=== PATIENT | male | born 1955 | race Caucasian/White ===

== ENCOUNTER 2016-10-21 16:51 | Inpatient (IN) | payer MEDICARE ==
--- NOTE | 2016-10-21 18:31 | ED ---
Psych HPI - General Chief Complaint: Psychiatric Symptoms Stated Complaint: Medication Evaluation Time Seen by Provider: 10/21/16 18:15 Source: patient, family, RN notes reviewed Mode of arrival: ambulatory - History of Present Illness Initial Comments: Is a 61-year-old male with a history of depression also arthritis and GERD who is in tonight for evaluation for erratic mood swings. He states he is not suicidal or homicidal but this is been having mood swings feeling up and down up and down he feels very depressed. He states he had been on multiple medications or depressions noted which seemed to work she was taking cold turkey off his medications in the past he states recently 70 daily sleep very well he is very desponded. MD Complaint: feels depressed - Related Data Home Medications Medication Instructions Recorded Confirmed Omeprazole 40 mg PO DAILY 04/13/16 10/21/16 Amitriptyline HCl [Elavil] 100 mg PO HS 10/21/16 10/21/16 Cholecalciferol [Vitamin D3] 1,000 unit PO DAILY 10/21/16 10/21/16 Melatonin 5 mg PO HS 10/21/16 10/21/16 Dingle-3 Fatty Acids/Fish Oil [Fish 1 cap PO DAILY 10/21/16 10/21/16 Oil 1,000 mg Capsule] Terazosin [Hytrin] 5 mg PO BID 10/21/16 10/21/16 Vitamin B Complex 1 cap PO DAILY 10/21/16 10/21/16 Allergies Allergy/AdvReac Type Severity Reaction Status Date / Time No Known Allergies Allergy Verified 10/21/16 19:05 Review of Systems ROS Statement: Those systems with pertinent positive or pertinent negative responses have been documented in the HPI. ROS Other: All systems not noted in ROS Statement are negative. Past Medical History Past Medical History: GERD/Reflux History of Any Multi-Drug Resistant Organisms: None Reported Past Surgical History: No Surgical Hx Reported Additional Past Surgical History / Comment(s): toe removal (R) foot. Past Psychological History: Anxiety, Depression Smoking Status: Current every day smoker Past Alcohol Use History: None Reported Past Drug Use History: None Reported General Exam - General Exam Comments Initial Comments: This is a well-developed well-nourished awake alert oriented 3 male Limitations: no limitations General appearance: alert, anxious Head exam: Present: atraumatic, normocephalic, normal inspection Eye exam: Present: normal appearance, PERRL, EOMI. Absent: scleral icterus, conjunctival injection, periorbital swelling ENT exam: Present: normal exam, mucous membranes moist Neck exam: Present: normal inspection. Absent: tenderness, meningismus, lymphadenopathy Respiratory exam: Present: normal lung sounds bilaterally. Absent: respiratory distress, wheezes, rales, rhonchi, stridor Cardiovascular Exam: Present: regular rate, normal rhythm, normal heart sounds. Absent: systolic murmur, diastolic murmur, rubs, gallop, clicks GI/Abdominal exam: Present: soft, normal bowel sounds. Absent: distended, tenderness, guarding, rebound, rigid Extremities exam: Present: normal inspection, full ROM, normal capillary refill. Absent: tenderness, pedal edema, joint swelling, calf tenderness Back exam: Present: normal inspection Neurological exam: Present: alert, oriented X3, CN II-XII intact Psychiatric exam: Present: depressed Skin exam: Present: warm, dry, intact, normal color. Absent: rash Course Vital Signs 10/21/16 17:35 Temperature 97.3 F L Pulse Rate 86 Respiratory 20 Rate Blood Pressure 143/87 O2 Sat by Pulse 97 Oximetry Medical Decision Making - Medical Decision Making The patient was evaluated by the psychiatric service/[facility] service patient will be admitted for inpatient treatment. - Lab Data Lab Results 10/21/16 Range/Units 19:49 Urine Opiates Screen Not Detected (NotDetected) Ur Oxycodone Screen Not Detected (NotDetected) Urine Methadone Screen Not Detected (NotDetected) Ur Propoxyphene Screen Not Detected (NotDetected) Ur Barbiturates Screen Not Detected (NotDetected) U Tricyclic Antidepress Detected H (NotDetected) Ur Phencyclidine Scrn Not Detected (NotDetected) Ur Amphetamines Screen Not Detected (NotDetected) U Methamphetamines Scrn Not Detected (NotDetected) U Benzodiazepines Scrn Not Detected (NotDetected) Urine Cocaine Screen Not Detected (NotDetected) U Marijuana (THC) Screen Not Detected (NotDetected) Disposition Clinical Impression: Depression Disposition: TRANSFER TO PSYCH HOSP/UNIT Condition: Stable Referrals: None,Stated [Primary Care Provider] - 1-2 days
[2016-10-21] MEDS ORDERED: ZIPRASIDONE 20 MG VIAL IM PRN (21:12)
[2016-10-21] MEDS ORDERED: ACETAMINOPHEN TAB 325 MG TAB PO PRN (21:12)
[2016-10-21] MEDS ORDERED: MAG HYDROX/AL HYDROX/SIMETH 30 ML CUP PO PRN (21:12)
[2016-10-21] MEDS ORDERED: MAGNESIUM HYDROXIDE 2,400 MG/10 ML CUP PO PRN (21:12)
[2016-10-21 22:15] VITALS: BMI 29.5
[2016-10-21] MEDS: LORazepam 1 MG TAB PO PRN (22:54)
[2016-10-22] MEDS: TERAZOSIN 5 MG CAP PO SCH ×2 (08:25→20:37)
[2016-10-22] MEDS: PANTOPRAZOLE 40 MG TABLET PO SCH (08:25)
[2016-10-22 09:31] LABS: Basophils % (A) 0 %; CH 31.2; CHCM 34.5; Eosinophils # (A) 0.2 k/uL (0-0.7); Eosinophils % (A) 3 %; HCT 45.2 % (39.0-53.0); HDW 2.43; HGB 15.2 gm/dL (13.0-17.5); Luc # (Auto) 0.23; Luc % (Auto) 3; Lymphocytes # (A) 1.5 k/uL (1.0-4.8); Lymphocytes % (A) 21 %; MCH 30.5 pg (25.0-35.0); MCHC 33.6 g/dL (31.0-37.0); MCV 90.9 fL (80.0-100.0); Monocytes # (A) 0.4 k/uL (0-1.0); Monocytes % (A) 6 %; Neutrophils # (A) 4.7 k/uL (1.3-7.7); Neutrophils % (A) 66 %; RBC 4.97 m/uL (4.30-5.90); WBC 7.1 k/uL (3.8-10.6); WBC (Perox) 6.99
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
[2016-10-22 09:48] LABS: ALT 31 U/L (21-72); AST 22 U/L (17-59); Alkaline Phosphatase 87 U/L (38-126); Anion Gap 10 mmol/L; Blood Urea Nitrogen 15 mg/dL (9-20); Calcium 9.8 mg/dL (8.4-10.2); Carbon Dioxide 24 mmol/L (22-30); Chloride 108 mmol/L (98-107); Glucose 137 mg/dL (74-99); Non-African American GFR(MDRD) >60 (>60 ml/min/1.73 sqM); Potassium 4.2 mmol/L (3.5-5.1); Sodium 142 mmol/L (137-145); Total Bilirubin 1.3 mg/dL (0.2-1.3); Total Protein 7.4 g/dL (6.3-8.2)
[2016-10-22] MEDS: LORazepam 1 MG TAB PO PRN (20:38)
--- NOTE | 2016-10-22 23:42 | CONS ---
DATE OF CONSULTATION: 10/22/2016 REASON FOR CONSULTATION: Medical management requested by Dr. Jenkins. CONSULTATION: This is a pleasant 61-year-old patient of Dr. Kedar Lipscomb whose chronic stable medical conditions include GERD, insomnia, arthritis in his feet, increased cholesterol, the medication for which has been held by his family doctor. Patient has a right eyeglass, a complication of cataract surgery. Patient has not been taking some of his medications and presented with extreme anxiety, in nearly a manic state, admitted for the same. Further workup as per Psychiatry. Patient denies any cardiac history. Sitting up on a chair, comfortable. REVIEW OF SYSTEMS: CONSTITUTIONAL: None. HEENT: No vision in the right eye. RESPIRATORY: None. CARDIOVASCULAR: None. GASTROINTESTINAL: Patient has GERD. GENITOURINARY: None. MUSCULOSKELETAL: Aches and pains in the joints, especially in the feet. DERMATOLOGICAL: None. HEMATOLOGICAL: None. LYMPHATICS: None. PSYCHIATRY: Very anxious. PAST MEDICAL HISTORY: 1. GERD. 2. Insomnia. 3. Arthritis in the feet. 4. Increased cholesterol. 5. Right glass eye. 6. Anxiety. 7. Depression. PAST SURGICAL HISTORY: Right toe removed. SOCIAL HISTORY: Patient smoked for about 37 years; stopped about 6 months ago. . On Disability. Patient used to work in [place] and was laid off. Denies any excessive alcohol. FAMILY HISTORY: Dementia. HOME MEDICATIONS: 1. Vitamin B complex 1 capsule p.o. daily. 2. Hytrin 5 mg p.o. b.i.d. 3. Fish oil 1 capsule p.o. daily. 4. Melatonin 5 mg p.o. at bedtime. 5. Vitamin D3, 1000 units p.o. daily. 6. Elavil 100 mg at bedtime. 7. Omeprazole 40 mg p.o. daily. On examination, temperature 97.8, pulse 87, respiration 16, blood pressure 126/79, pulse ox 97% on room air. GENERAL APPEARANCE: Average build. Sitting up on a chair. Comfortable. 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 HEENT: External appearance of nose and ears normal. Oral cavity normal. NECK: JVD not raised. Mass not palpable. RESPIRATORY: Effort normal. LUNGS: Slightly decreased breath sounds. CARDIOVASCULAR: First and second sounds normal. No edema. ABDOMEN: Soft, nontender. Liver and spleen not palpable. LYMPHATIC: No lymph node palpable in neck or axillae. PSYCHIATRY: Alert and oriented x3. Mood and affect slightly anxious-appearing. NEUROLOGICAL: Pupils equal. Cranial nerves grossly intact. Power and sensation grossly intact. INVESTIGATIONS: White count 7.1, hemoglobin 15.2. Potassium 4.2. BUN and creatinine are normal. Glucose 137. Urine drug screen positive for tricyclic antidepressants. ASSESSMENT: 1. Chronic insomnia from multiple medical problems. 2. Chronic gastroesophageal reflux disease. 3. Primary osteoarthritis in both feet. 4. Hyperglycemia, currently off medication. 5. Artificial right eye. 6. Bipolar 2 disorder, most recent episode mixed mood state. 7. Unspecified anxiety disorder as per Psychiatry. PLAN: Care was discussed with the patient. Home medication should be reviewed. The patient when discharged should follow up with Dr. Lipscomb. Please call us if you have any questions. Thank you, Dr. Jenkins.
[2016-10-23] MEDS: TERAZOSIN 5 MG CAP PO SCH ×2 (08:44→20:26)
[2016-10-23] MEDS: PANTOPRAZOLE 40 MG TABLET PO SCH (08:44)
--- NOTE | 2016-10-23 11:37 | P.PN ---
Progress Note - Text SUBJECTIVE: I reviewed the medical record, interviewed Mr. Santamaria discuss his treatment and treatment plan during team meeting. He denied problems or concerns. He alleged that he slept well last night and feels much less anxious than he did yesterday. We discussed treatment of his bipolar illness. He consented to a trial of Seroquel. OBJECTIVE: He presented as a casually groomed 61-year-old male who was pleasant on approach. He made eye contact and appeared to attend to the interview. He had a bright facial expression. He showed no abnormality of psychomotor activity. He was not agitated or restless. His speech was nonpressured but had increased rate. His affect was elevated but appropriate. He denied suicidal ideation or wishes. He denied homicidal ideation. He denied feeling hopeless, helpless or worthless. He did not express ideas reference, paranoid ideation or delusional thoughts. His thinking was concrete but his associations appeared coherent and logical. He denied hallucinations and did not appear to be responding to internal stimuli. ASSESSMENT: He is less anxious, restless and hyperactive than yesterday. He is denying feeling hopeless or helpless. He has some signs of hypomania. PLAN: Continue inpatient psychiatric hospitalization. Continue suicide precautions with 15 minute checks. Begin a trial of Seroquel XL 100 mg at bedtime and titrated according to clinical response and tolerance. Encourage participation in therapeutic groups and activities. Evaluate clinical status response to treatment daily basis.
[2016-10-24] MEDS: PANTOPRAZOLE 40 MG TABLET PO SCH (09:18)
[2016-10-24] MEDS: TERAZOSIN 5 MG CAP PO SCH ×2 (09:18→20:03)
[2016-10-24] MEDS: LORazepam 1 MG TAB PO PRN ×2 (09:19→22:25)
--- NOTE | 2016-10-24 15:39 | P.PN ---
Progress Note - Text INTERVERAL HISTORY: Cross cover for weekend Review of medical record met with patient. Patient reports that he slept well but that he had a nightmare last night. Patient begins to talk about needing to go home and take care of his . Talks about his dog how he got the dog. Patient hyperverbal tearful at times, labile switching to laughing. MENTAL STATUS EXAM:Patient alert and oriented 3, good eye contact, street clothing. Speech normal volume, rate and production. Coherent, logical, hyperverbal, overdetailed, circumstantial and tangential thought process. No COBY, no FOI. [No TB/TW/TI] Denied auditory and visual hallucinations. Denied paranoid ideation, delusions or IOR. Mood elevated, tearful, affect and expansive, congruent with mood. Denies suicidal ideation, denies homicidal ideation. Insight partial; Judgement roast plan intact for treatment purposes Bipolar, hypomanic PLAN: Continue inpatient psychiatric hospitalization. Continue suicide precautions with 15 minute checks. Increase Seroquel to 200 mg daily at bedtime, titrated according to clinical response and tolerance. The patient in milieu therapy
[2016-10-24] MEDS: QUEtiapine XR 200 MG TAB.ER.24H PO SCH (20:05)
[2016-10-25] MEDS: PANTOPRAZOLE 40 MG TABLET PO SCH (08:40)
[2016-10-25] MEDS: TERAZOSIN 5 MG CAP PO SCH ×2 (08:40→20:14)
--- NOTE | 2016-10-25 15:17 | P.PN ---
Progress Note - Text INTERVERAL HISTORY:Weekend cross cover for Dr Jenkins Review of medical record discussed with nursing staff, met with patient. Patient reports that he slept well last night, no nightmares. REports he was sedated and had hard time waking up. Patient again speaks about his and his need to be at home and take care of her, but did not press. Today patient was not labile as yesterday. Patient note hyperverbal. MENTAL STATUS EXAM:Patient alert and oriented 3, good eye contact, street clothing. Speech normal volume, rate and production. Coherent, logical, goal directed thought process. No COBY, no FOI. [No TB/TW/TI] Denied auditory and visual hallucinations. Denied paranoid ideation, delusions or IOR. Mood neutral, affect full range normal intensity, congruent with mood. Denies suicidal ideation, denies homicidal ideation. Insight partial; Judgement grossly intact for treatment purposes Bipolar, hypomanic PLAN: Continue inpatient psychiatric hospitalization. Continue suicide precautions with 15 minute checks. Continue Seroquel to 200 mg daily at bedtime, titrated according to clinical response and tolerance. SW to arrange family meeting, need wifes input on how patient is doing. Informed patient I could not promise discharge tomorrow, new psychiatrist will need to be in agreement.
[2016-10-25] MEDS: QUEtiapine XR 200 MG TAB.ER.24H PO SCH (20:14)
[2016-10-26] MEDS: PANTOPRAZOLE 40 MG TABLET PO SCH (09:11)
[2016-10-26] MEDS: TERAZOSIN 5 MG CAP PO SCH ×2 (09:11→21:09)
--- NOTE | 2016-10-26 14:38 | P.PN ---
Progress Note - Text SUBJECTIVE: I reviewed the medical record, interviewed Mr. Santamaria discuss his treatment and treatment plan during team meeting. He reports that current medication is helping him ,mind is not racing as before ,not easy agitated as before ,still having initial insomnia because "I stay late reading the Bible ", religiously preoccupied ,denies any side-effect from medication ,feels much less anxious than he did prior to his admission Talked in detail about ongoing stressor especially regarding his medical insurance and does not know if he is qualified for Medicaid as supplement or not "I need dental work and hearing test but I can not afford it" OBJECTIVE: He presented as a casually groomed 61-year-old male who was pleasant on approach. He made eye contact and appeared to attend to the interview. He had a tense facial look. He was not agitated or restless. His speech was non pressured but had increased rate. His affect was elevated but appropriate. He denied suicidal ideation or wishes. He denied homicidal ideation. He denied feeling hopeless, helpless or worthless. He did not express ideas reference, paranoid ideation or delusional thoughts. His thinking was concrete but his associations appeared coherent and logical. He denied hallucinations and did not appear to be responding to internal stimuli. ASSESSMENT: He is less anxious, decrease racing thoughts. He is denying feeling hopeless or helpless. PLAN: Continue inpatient psychiatric hospitalization. ,change Seroquel to regular form as patient will not be able to afford cost of XR Evaluate clinical status response to treatment daily basis.,most likely discharge Tomorrow
[2016-10-26] MEDS ORDERED: QUEtiapine 200 MG TAB PO SCH (21:00)
[2016-10-27 06:48] VITALS: TEMP 97.8
[2016-10-27] MEDS: PANTOPRAZOLE 40 MG TABLET PO SCH (07:53)
[2016-10-27] MEDS: TERAZOSIN 5 MG CAP PO SCH (09:42)
[2016-10-27 09:44] VITALS: BP 130/82; PULSE 93; RESP 16
--- NOTE | 2016-10-27 12:42 | DS ---
DATE OF ADMISSION: 10/21/2016 DATE OF DISCHARGE: 10/27/2016 CONSULT REASON: For medical management. DISCHARGE DIAGNOSES: 1. Bipolar disorder type 2, mixed episode. 2. Unspecified anxiety disorder. BRIEF SUMMARY OF THE ADMISSION NOTES: Please refer to the initial psychiatric evaluation dictated by Dr. Jenkins. Patient initially admitted to the mental health unit complaining of high anxiety, racing mind, poor sleep, very restless, on edge, a lot of pentecostalism issues with patient, hyperverbal and loud. For complete evaluation please refer to history and physical exam. HOSPITAL COURSE: Patient was admitted to the mental health unit on voluntary basis. At the time of the admission, patient was on melatonin 5 mg at bedtime and amitriptyline 100 mg at bedtime prescribed by his primary care physician for his depression; however, it seems that this did trigger manic episode, and the patient was having more anxiety, racing thoughts, very restless and hyperverbal since he did start to tricyclic antidepressant. Dr. Jenkins discontinued the Elavil and he did start him on Seroquel XR and gradually titrated it to 200 mg; however, patient does not have supplement insurance to afford the silvestre for the Seroquel XR, so I did change the Seroquel to regular form that the patient can afford. When I saw the patient, he stated that prior to his admission he was up all night reading in his bible and praying; however, he stated that since he has been on Seroquel 200 and this is since October 25, he has been able to sleep at night, less religiously preoccupied. No anxiety. No racing thought. He denied any psychotic symptoms such as auditory or visual hallucination or idea of reference. In one-to-one he was frustrated as he is not able to afford dental work financially and also hearing test, but in general he was very pleasant, very kind, cooperative, attending all the group therapy and he denied any side effect from the medication. Mental status examination at the time of the discharge: Patient is a very pleasant, elderly man missing most of his front teeth, alert, oriented x3. Good eye contact. Speech is normal in volume and rate. Denied any auditory, visual hallucination, denied any delusion or paranoia, slightly pentecostalism preoccupied, but very easy to redirect. No suicidal ideation, intent or plan. Denied any homicidal ideation. Insight and judgment are improving. Cognitive ability has remained stable across his hospitalization. There is no verbal or physical aggression observed. PLAN: 1. The patient will be discharged from the Mental Health Unit today to return back home. 2. Patient was given prescription for Seroquel 200 mg at bedtime to restore his sleep and as mood stabilizer. I did discuss with the patient that he cannot take any antidepression medication as this would trigger manic episode, especially the tricyclic antidepressant. Patient is able to complete his activities of daily living. There is no eminent safety risk and he is appropriate for transition back to the outpatient care. He was instructed to return to the emergency room if any acute safety concern. Patient's condition at the time of the discharge is stable.
== END 2016-10-27 16:05 | disposition home or self-care (01) | DRG 885 ==
LOC: EC 16:51 → 3MHU 20:49
PROVIDERS: ADMIT Psychiatry & Neurology Psychiatry; ATTEND Psychiatry & Neurology Psychiatry
DX: F31.81 Bipolar II disorder (principal); F41.9 Anxiety disorder, unspecified; F51.04 Psychophysiologic insomnia; K21.9 Gastro-esophageal reflux disease without esophagitis; R73.9 Hyperglycemia, unspecified; F51.5 Nightmare disorder; K08.409 Partial loss of teeth, unspecified cause, unspecified class; H54.41 Blindness, right eye, normal vision left eye; M19.072 Primary osteoarthritis, left ankle and foot; M19.071 Primary osteoarthritis, right ankle and foot; Z90.01 Acquired absence of eye; Z97.0 Presence of artificial eye; Z56.0 Unemployment, unspecified; Z63.8 Other specified problems related to primary support group; Z62.810 Personal history of physical and sexual abuse in childhood; Z62.820 Parent-biological child conflict; Z81.1 Family history of alcohol abuse and dependence; Z59.9 Problem related to housing and economic circumstances, unspecified; Z87.891 Personal history of nicotine dependence; Z79.899 Other long term (current) drug therapy; Z89.421 Acquired absence of other right toe(s); Z86.69 Personal history of other diseases of the nervous system and sense organs
CPT/HCPCS: 80053; 80306; 84443; 85025; 99285

== ENCOUNTER → 2018-11-12 | Outpatient (CLI) | payer MEDICARE ==
[2018-11-12 09:42] LABS: Basophils % (A) 0 %; Eosinophils # (A) 0.3 k/uL (0-0.7); Eosinophils % (A) 3 %; HCT 43.2 % (39.0-53.0); HGB 13.9 gm/dL (13.0-17.5); Lymphocytes # (A) 1.6 k/uL (1.0-4.8); Lymphocytes % (A) 18 %; MCH 28.8 pg (25.0-35.0); MCHC 32.1 g/dL (31.0-37.0); MCV 89.7 fL (80.0-100.0); Monocytes # (A) 0.5 k/uL (0-1.0); Monocytes % (A) 6 %; Neutrophils % (A) 70 %; Platelet Count 245 k/uL (150-450); RBC 4.82 m/uL (4.30-5.90); RDW 14.8 % (11.5-15.5); WBC 8.7 k/uL (3.8-10.6)
[2018-11-12 16:16] LABS: ALT 40 U/L (10-49); AST 32 U/L (14-35); African American GFR (CKD) 92.4 (60.0-200.0); Albumin/Globulin Ratio 1.91 (1.60-3.17); Alkaline Phosphatase 96 U/L (41-126); Calcium 9.5 mg/dL (8.7-10.3); Carbon Dioxide 29.1 mmol/L (21.6-31.8); Chloride 106 mmol/L (96-109); Cholesterol 262 mg/dL (0-200); Globulin 2.2 g/dL (1.6-3.3); Glucose 111 mg/dL (70-110); Potassium 4.2 mmol/L (3.5-5.5); Sodium 141 mmol/L (135-145); Total Bilirubin 0.3 mg/dL (0.2-1.2); Total Protein 6.4 g/dL (6.2-8.2)
== END | disposition home or self-care (01) ==
LOC: LABWHC1 08:39
PROVIDERS: ATTEND Family Medicine
DX: I10 Essential (primary) hypertension (principal); J44.9 Chronic obstructive pulmonary disease, unspecified; E78.5 Hyperlipidemia, unspecified
CPT/HCPCS: 36415; 80053; 80061; 83721; 85025

== ENCOUNTER 2019-03-22 06:02 | Inpatient (IN) | payer MEDICARE ==
[2019-03-22] MEDS ORDERED: SODIUM CHLORIDE 0.9% 1,000 ML IV ONE ×3 (06:18→07:35)
[2019-03-22 06:24] LABS: Glucose,Whole Blood >600 mg/dL (75-99)
[2019-03-22] MEDS ORDERED: SODIUM CHLORIDE 0.9% 1,000 ML IV SCH (06:30)
--- NOTE | 2019-03-22 06:39 | ED ---
Nausea/Vomiting/Diarrhea HPI - General Chief complaint: Nausea/Vomiting/Diarrhea Stated complaint: abd pain, disoriented Time Seen by Provider: 03/22/19 06:08 Source: patient Mode of arrival: ambulatory Limitations: no limitations - History of Present Illness Initial comments: 63-year-old male history of type 2 diabetes on metformin, severe depression, G ERD presents emergency department for 4 days of vomiting, disorientation. at bedside as well as patient provide history. Patient states he has been vomiting for the past 4 days he states he is not drinking much water but rather large amounts of Coca cola. states that he has seemed disoriented she states she knows raise at what year it is and his birthday but just seems off. No focused. Patient denies abdominal pain, diarrhea, fevers or chest pain. patient states he is slightly SOB. Denies leg swelling. Remaining ROS (-) Upon arrival patient has increased respiration, AAOx3. Appears obviously dry. - Related Data Home Medications Medication Instructions Recorded Confirmed Omeprazole 40 mg PO DAILY 04/13/16 03/22/19 Terazosin [Hytrin] 5 mg PO BID 10/21/16 03/22/19 Atorvastatin [Lipitor] 40 mg PO HS 03/22/19 03/22/19 Cholecalciferol [Vitamin D3 (25 1,000 unit PO DAILY 03/22/19 03/22/19 Mcg = 1000 Iu)] Cinnamon Bark [Cinnamon] 1,000 mg PO DAILY 03/22/19 03/22/19 Citalopram Hydrobromide [CeleXA] 30 mg PO DAILY 03/22/19 03/22/19 Cyanocobalamin (Vitamin B-12) 1,000 mcg PO DAILY 03/22/19 03/22/19 [Vitamin B-12] Fish Oil/Dha/Epa [Fish Oil 1,200 1 cap PO DAILY 03/22/19 03/22/19 mg Fish Oil] Multivit-Min/Folic/Vit K/Lycop 1 tab PO DAILY 03/22/19 03/22/19 [Men's Multivitamin Tablet] OLANZapine 20 mg PO HS 03/22/19 03/22/19 Vitamin E (Dl,Tocopheryl Acet) 400 unit PO DAILY 03/22/19 03/22/19 [Vitamin E] clonazePAM 1 mg PO BID 03/22/19 03/22/19 metFORMIN HCL [Glucophage] 1,000 mg PO BID 03/22/19 03/22/19 Allergies Allergy/AdvReac Type Severity Reaction Status Date / Time No Known Allergies Allergy Verified 03/22/19 07:47 Review of Systems ROS Statement: Those systems with pertinent positive or pertinent negative responses have been documented in the HPI. ROS Other: All systems not noted in ROS Statement are negative. Past Medical History Past Medical History: Diabetes Mellitus, GERD/Reflux, Hyperlipidemia History of Any Multi-Drug Resistant Organisms: None Reported Past Surgical History: No Surgical Hx Reported Additional Past Surgical History / Comment(s): toe removal (R) foot. Past Anesthesia/Blood Transfusion Reactions: No Reported Reaction Past Psychological History: Anxiety, Depression Smoking Status: Current every day smoker Past Alcohol Use History: None Reported Past Drug Use History: None Reported - Past Family History Father History Unknown: Yes Family Medical History: Dementia General Exam - General Exam Comments Initial Comments: General: The patient is awake and alert, but appears fatigued Eye: +3 mm pupils are equal, round and reactive to light, extra-ocular movements are intact. No nystagmus. There is normal conjunctiva bilaterally. No signs of icterus. Ears, nose, mouth and throat: There are moist mucous membranes and no oral lesions. Neck: The neck is supple, there is no tenderness or JVD. Cardiovascular: There is a regular rate and rhythm. No murmur, rub or gallop is appreciated. Respiratory: Lungs are clear to auscultation, respirations are non-labored respiration rate is increased, breath sounds are equal. No wheezes, stridor, rales, or rhonchi. Gastrointestinal: Soft, non-distended, non-tender abdomen without masses or organomegaly noted. There is no rebound or guarding present. Musculoskeletal: Normal ROM, no tenderness. Strength 5/5. Sensation intact. Radial and DP pulses equal bilaterally 2+. Neurological: A&O x 3. CN II-XII intact grossly, There are no obvious motor or sensory deficits. Coordination appears grossly intact. Speech is normal. Skin: Skin is warm and dry and no rashes or lesions are noted. Psychiatric: Cooperative, appropriate mood & affect, normal judgment. Limitations: no limitations Course Vital Signs 03/22/19 03/22/19 03/22/19 06:07 06:52 07:40 Temperature 97.4 F L Pulse Rate 95 96 Respiratory 27 H 26 H Rate Blood Pressure 123/86 122/103 O2 Sat by Pulse 96 97 Oximetry 03/22/19 08:27 Temperature 98.0 F Pulse Rate 98 Respiratory 26 H Rate Blood Pressure 132/108 O2 Sat by Pulse 96 Oximetry Medical Decision Making - Medical Decision Making 63-year-old male presents emergency department for evaluation of vomiting, altered mental status. Patient is alert and oriented 3 upon arrival does not appear acutely altered however slightly lethargic. Patient Glucose >600. DMII hx. Patient found to be in DKA with critically low CO2, elevated glucose at ~1000 and acetone position with urine ketones. Patient potassium 5.4. Patient given IVF, on maintenance at 200ml/hr. Insulin bolus with DKA protocols in place. Patient case discussing with attending Dr. Medley patient will be admitted to floor on telemetry. He is currently stable. Admission accepted. - Lab Data Result diagrams: 03/22/19 06:30 03/22/19 06:30 Lab Results 03/22/19 03/22/19 03/22/19 Range/Units 06:18 06:18 06:30 WBC 8.1 (3.8-10.6) k/uL RBC 5.17 (4.30-5.90) m/uL Hgb 16.0 (13.0-17.5) gm/dL Hct 51.2 (39.0-53.0) % MCV 99.1 (80.0-100.0) fL MCH 31.0 (25.0-35.0) pg MCHC 31.3 (31.0-37.0) g/dL RDW 13.3 (11.5-15.5) % Plt Count 377 (150-450) k/uL Neutrophils % 87 % Lymphocytes % 7 % Monocytes % 5 % Eosinophils % 0 % Basophils % 0 % Neutrophils # 7.1 (1.3-7.7) k/uL Lymphocytes # 0.5 L (1.0-4.8) k/uL Monocytes # 0.4 (0-1.0) k/uL Eosinophils # 0.0 (0-0.7) k/uL Basophils # 0.0 (0-0.2) k/uL Hypochromasia Slight PT (9.0-12.0) sec INR (<1.2) APTT (22.0-30.0) sec Sodium (137-145) mmol/L Potassium (3.5-5.1) mmol/L Chloride (98-107) mmol/L Carbon Dioxide (22-30) mmol/L Anion Gap mmol/L BUN (9-20) mg/dL Creatinine (0.66-1.25) mg/dL Est GFR (CKD-EPI)AfAm (>60 ml/min/1.73 sqM) Est GFR (CKD-EPI)NonAf (>60 ml/min/1.73 sqM) Glucose (74-99) mg/dL POC Glucose (mg/dL) >600 H >600 H (75-99) mg/dL POC Glu Certified Personal Finance Counselor ID Zimbabwean, Hazel Zimbabwean, Hazel Calcium (8.4-10.2) mg/dL Magnesium (1.6-2.3) mg/dL Total Bilirubin (0.2-1.3) mg/dL AST (17-59) U/L ALT (21-72) U/L Alkaline Phosphatase (38-126) U/L Troponin I (0.000-0.034) ng/mL Total Protein (6.3-8.2) g/dL Albumin (3.5-5.0) g/dL Acetone, Qual (Negative) 03/22/19 03/22/19 03/22/19 Range/Units 06:30 06:30 06:30 WBC (3.8-10.6) k/uL RBC (4.30-5.90) m/uL Hgb (13.0-17.5) gm/dL Hct (39.0-53.0) % MCV (80.0-100.0) fL MCH (25.0-35.0) pg MCHC (31.0-37.0) g/dL RDW (11.5-15.5) % Plt Count (150-450) k/uL Neutrophils % % Lymphocytes % % Monocytes % % Eosinophils % % Basophils % % Neutrophils # (1.3-7.7) k/uL Lymphocytes # (1.0-4.8) k/uL Monocytes # (0-1.0) k/uL Eosinophils # (0-0.7) k/uL Basophils # (0-0.2) k/uL Hypochromasia PT 9.6 (9.0-12.0) sec INR 0.9 (<1.2) APTT 24.6 (22.0-30.0) sec Sodium 135 L (137-145) mmol/L Potassium 5.4 H (3.5-5.1) mmol/L Chloride 98 (98-107) mmol/L Carbon Dioxide <5 L* (22-30) mmol/L Anion Gap mmol/L BUN 44 H (9-20) mg/dL Creatinine 1.79 H (0.66-1.25) mg/dL Est GFR (CKD-EPI)AfAm 46 (>60 ml/min/1.73 sqM) Est GFR (CKD-EPI)NonAf 40 (>60 ml/min/1.73 sqM) Glucose 1141 H* (74-99) mg/dL POC Glucose (mg/dL) (75-99) mg/dL POC Glu Certified Personal Finance Counselor ID Calcium 10.1 (8.4-10.2) mg/dL Magnesium 2.8 H (1.6-2.3) mg/dL Total Bilirubin 0.6 (0.2-1.3) mg/dL AST 24 (17-59) U/L ALT 52 (21-72) U/L Alkaline Phosphatase 177 H (38-126) U/L Troponin I <0.012 (0.000-0.034) ng/mL Total Protein 7.8 (6.3-8.2) g/dL Albumin 4.8 (3.5-5.0) g/dL Acetone, Qual Positive (Negative) - EKG Data EKG Comments: Ventricular rate 93 bpm, MI interval 156 ms, QRS duration 148 ms, QT/QTC 420/522 ms. This is normal sinus rhythm with a right bundle-branch block. EKG personally interpreted and reviewed by attending Dr. Medley Disposition Clinical Impression: DKA (diabetic ketoacidoses), Blood CO2 decreased, Altered mental status Disposition: ADMITTED IP TO THIS [facility] Condition: Serious Is patient prescribed a controlled substance at d/c from ED?: No Time of Disposition: 08:43 Decision to Admit Reason: Admit from EC Decision Date: 03/22/19 Decision Time: 07:45
[2019-03-22 06:46] LABS: Basophils % (A) 0 %; Eosinophils % (A) 0 %; HCT 51.2 % (39.0-53.0); Hypochromasia Slight; Lymphocytes # (A) 0.5 k/uL (1.0-4.8); Lymphocytes % (A) 7 %; MCHC 31.3 g/dL (31.0-37.0); MCV 99.1 fL (80.0-100.0); Mean Platelet Volume 8.2; Monocytes # (A) 0.4 k/uL (0-1.0); Monocytes % (A) 5 %; Neutrophils # (A) 7.1 k/uL (1.3-7.7); Neutrophils % (A) 87 %; Platelet Count 377 k/uL (150-450); RBC 5.17 m/uL (4.30-5.90); RDW 13.3 % (11.5-15.5); WBC 8.1 k/uL (3.8-10.6)
[2019-03-22 07:00] LABS: INR 0.9 (<1.2); Partial Thromboplastin Time 24.6 sec (22.0-30.0); Prothrombin Time 9.6 sec (9.0-12.0)
[2019-03-22 07:03] LABS: ALT 52 U/L (21-72); AST 24 U/L (17-59); African American GFR (CKD) 46 (>60 ml/min/1.73 sqM); Albumin 4.8 g/dL (3.5-5.0); Alkaline Phosphatase 177 U/L (38-126); Blood Urea Nitrogen 44 mg/dL (9-20); Calcium 10.1 mg/dL (8.4-10.2); Chloride 98 mmol/L (98-107); Magnesium 2.8 mg/dL (1.6-2.3); Potassium 5.4 mmol/L (3.5-5.1); Sodium 135 mmol/L (137-145); Total Bilirubin 0.6 mg/dL (0.2-1.3); Total Protein 7.8 g/dL (6.3-8.2)
[2019-03-22 07:26] LABS: Glucose 1141 mg/dL (74-99)
[2019-03-22 07:28] LABS: Carbon Dioxide <5 mmol/L (22-30)
[2019-03-22] MEDS ORDERED: INSULIN REGULAR BOLUS (FROM DRIP BAG) IV ONE (07:30)
[2019-03-22] MEDS ORDERED: NALOXONE 0.4 MG/ML 1 ML VIAL IV PRN (07:36)
[2019-03-22] MEDS ORDERED: ONDANSETRON 4 MG/2 ML VIAL IVP PRN (07:36)
--- NOTE | 2019-03-22 07:38 | XR ---
EXAMINATION TYPE: XR chest 2V DATE OF EXAM: 03/22/2019 COMPARISON: NONE HISTORY: Altered mental status TECHNIQUE: Frontal and lateral views of the chest are obtained. FINDINGS: Suboptimal inspiration. Probable linear atelectasis along the left infrahilar region, not d emonstrated well on the lateral view. There is no focal air space opacity, pleural effusion, or pneum othorax seen. The cardiac silhouette size is within normal limits. The osseous structures are inta ct. Minimal multilevel degenerative changes of the spine. IMPRESSION: Suboptimal inspiration with linear opacity along the left infrahilar region, likely atel ectasis.
[2019-03-22 07:51] LABS: Glucose,Whole Blood >600 mg/dL (75-99)
[2019-03-22] MEDS: INSULIN REGULAR 100 UNIT in SODIUM CHLORIDE 0.9% 100 ML IV SCH ×3 (07:52→23:14)
[2019-03-22 08:21] LABS: Appearance,Urine Clear (Clear); Bilirubin,Urine Negative (Negative); Blood,Urine Small (Negative); Color,Urine Colorless; Glucose,Urine (UA) 4+ (Negative); Leukocyte Esterase,Urine Negative (Negative); Mucus,Urine Rare /hpf; Nitrite,Urine Negative (Negative); Protein,Urine Trace (Negative); RBC,Urine <1 /hpf (0-5); Specific Gravity,Urine 1.022 (1.001-1.035); Urobilinogen,Urine <2.0 mg/dL (<2.0); WBC,Urine 1 /hpf (0-5)
[2019-03-22 08:26] LABS: Ketones,Urine 3+ (Negative)
[2019-03-22 08:32] LABS: Amphetamine Screen,Urine Not Detected (NotDetected); Barbiturate Screen,Urine Not Detected (NotDetected); Benzodiazepines Screen,Urine Not Detected (NotDetected); Cocaine Screen,Urine Not Detected (NotDetected); Methadone Screen, Urine Not Detected (NotDetected); Opiate Screen,Urine Not Detected (NotDetected); Oxycodone Screen, Urine Not Detected (NotDetected); Phencyclidine Screen,Urine Not Detected (NotDetected); Tricyclic Antidepressant,Urine Not Detected (NotDetected); Urn Cannabinoid Scrn Not Detected (NotDetected)
[2019-03-22 09:05] LABS: Glucose,Whole Blood >600 mg/dL (75-99)
[2019-03-22 09:46] LABS: VBG PH 7.09 (7.31-7.41)
[2019-03-22 09:53] LABS: African American GFR (CKD) 54 (>60 ml/min/1.73 sqM); Blood Urea Nitrogen 42 mg/dL (9-20); Chloride 112 mmol/L (98-107); Phosphorus 4.3 mg/dL (2.5-4.5); Potassium 4.6 mmol/L (3.5-5.1); Sodium 144 mmol/L (137-145)
[2019-03-22 10:05] LABS: Glucose 805 mg/dL (74-99)
[2019-03-22 10:06] LABS: Carbon Dioxide <5 mmol/L (22-30)
[2019-03-22 11:47] LABS: Glucose,Whole Blood >600 mg/dL (75-99)
[2019-03-22] MEDS: SODIUM CHLORIDE 0.45% 1,000 ML IV SCH ×2 (12:36→20:15)
--- NOTE | 2019-03-22 12:48 | P.HPIM ---
History of Present Illness 62-year-old admitted with for her diabetic ketoacidosis. Patient appears to have type 2 diabetes mellitus on metformin. Patient appears to have insulin deficiency even though his type II diabetic, because of which patient will need insulin upon discharge.I'm unable to get any history from the patient patient is alert oriented 2 but excessively drowsy and sleepy. Patient has been vomiting because of which patient stopped eating and started drinking Coca-Cola with which has sugars event patient came in with highly elevated blood sugars of 1100 patient may be in hyperosmolar statedoes appear to have ketoacidosis as well with the serum bicarbonate of less than 5 because her serum bicarbonate is very low anion gap is definitely very high but unable to calculate and patient is presently chloremia can hyponatremic because of that I'm switching this IV fluids to half-normal saline patient will be aggressively fluid resuscitated along with IV insulin. Review of Systems unable to obtain Past Medical History Past Medical History: Diabetes Mellitus, Eye Disorder, GERD/Reflux, Hyperlipidemia, Osteoarthritis (OA) Additional Past Medical History / Comment(s): NIDDM type II, insomnia, arthritis bilateral feet, tremors in arms/hands and feet, R eye is glass d/t eye problem present since , L eye diminished vision. 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 Past Anesthesia/Blood Transfusion Reactions: No Reported Reaction Smoking Status: Current every day smoker - Past Family History Father History Unknown: Yes Family Medical History: Dementia Additional Family Medical History / Comment(s): Father is living. Mother Family Medical History: Cancer Additional Family Medical History / Comment(s): Kidney cancer with nephrectomy and skin cancer removals. Mother is living. Medications and Allergies Home Medications Medication Instructions Recorded Confirmed Type Omeprazole 40 mg PO DAILY 04/13/16 03/22/19 History Terazosin [Hytrin] 5 mg PO BID 10/21/16 03/22/19 History Atorvastatin [Lipitor] 40 mg PO HS 03/22/19 03/22/19 History Cholecalciferol [Vitamin D3 (25 1,000 unit PO DAILY 03/22/19 03/22/19 History Mcg = 1000 Iu)] Cinnamon Bark [Cinnamon] 1,000 mg PO DAILY 03/22/19 03/22/19 History Citalopram Hydrobromide [CeleXA] 30 mg PO DAILY 03/22/19 03/22/19 History Cyanocobalamin (Vitamin B-12) 1,000 mcg PO DAILY 03/22/19 03/22/19 History [Vitamin B-12] Fish Oil/Dha/Epa [Fish Oil 1,200 1 cap PO DAILY 03/22/19 03/22/19 History mg Fish Oil] Multivit-Min/Folic/Vit K/Lycop 1 tab PO DAILY 03/22/19 03/22/19 History [Men's Multivitamin Tablet] OLANZapine 20 mg PO HS 03/22/19 03/22/19 History Vitamin E (Dl,Tocopheryl Acet) 400 unit PO DAILY 03/22/19 03/22/19 History [Vitamin E] clonazePAM 1 mg PO BID 03/22/19 03/22/19 History metFORMIN HCL [Glucophage] 1,000 mg PO BID 03/22/19 03/22/19 History Allergies Allergy/AdvReac Type Severity Reaction Status Date / Time No Known Allergies Allergy Verified 03/22/19 07:47 Physical Exam Vitals: Vital Signs Temp Pulse Pulse Resp BP BP Pulse Ox 03/22/19 11:47 97.9 F 98 20 130/82 94 L 03/22/19 09:18 97.6 F 99 20 129/77 95 03/22/19 08:27 98.0 F 98 26 H 132/108 96 03/22/19 07:40 96 26 H 122/103 97 03/22/19 06:52 97.4 F L 03/22/19 06:07 95 27 H 123/86 96 Intake and Output 03/21/19 03/22/19 03/22/19 22:59 06:59 14:59 Intake Total 45.112 Output Total 1000 Balance -954.888 Intake: Intake, IV Titration 45.112 Amount Insulin Regular 100 unit 45.112 In Sodium Chloride 0.9% 100 ml @ 0.1 UNITS/KG/HR 9.163 mls/hr IV .Q11H2M ABIGAIL Rx#:[id number] Output: Urine 1000 Other: # Voids 0 Weight 90.718 kg 90.718 kg PHYSICAL EXAMINATION: GENERAL: The patient is alert and oriented x2, not in any acute distress. Well developed, well nourished. HEENT: Pupils are round and equally reacting to light. EOMI. No scleral icterus. No conjunctival pallor. Normocephalic, atraumatic. No pharyngeal erythema. No thyromegaly. CARDIOVASCULAR: S1 and S2 present. No murmurs, rubs, or gallops. PULMONARY: Chest is clear to auscultation, no wheezing or crackles. ABDOMEN: Soft, nontender, nondistended, normoactive bowel sounds. No palpable organomegaly. MUSCULOSKELETAL: No joint swelling or deformity. EXTREMITIES: No cyanosis, clubbing, or pedal edema. NEUROLOGICAL: systole drowsy moving all 4 limbs SKIN: No rashes. Results CBC & Chem 7: 03/22/19 06:30 03/22/19 11:54 Labs: Abnormal Lab Results - Last 24 Hours (Table) 03/22/19 03/22/19 03/22/19 Range/Units 06:18 06:18 06:30 Lymphocytes # 0.5 L (1.0-4.8) k/uL VBG pH (7.31-7.41) VBG pCO2 (37-51) mmHg VBG HCO3 (24-28) mmol/L Sodium (137-145) mmol/L Potassium (3.5-5.1) mmol/L Chloride (98-107) mmol/L Carbon Dioxide (22-30) mmol/L BUN (9-20) mg/dL Creatinine (0.66-1.25) mg/dL Glucose (74-99) mg/dL POC Glucose (mg/dL) >600 H >600 H (75-99) mg/dL Magnesium (1.6-2.3) mg/dL Alkaline Phosphatase (38-126) U/L Urine Protein (Negative) Urine Glucose (UA) (Negative) Urine Ketones (Negative) Urine Blood (Negative) Urine Mucus (None) /hpf 03/22/19 03/22/19 03/22/19 Range/Units 06:30 07:49 08:10 Lymphocytes # (1.0-4.8) k/uL VBG pH (7.31-7.41) VBG pCO2 (37-51) mmHg VBG HCO3 (24-28) mmol/L Sodium 135 L (137-145) mmol/L Potassium 5.4 H (3.5-5.1) mmol/L Chloride (98-107) mmol/L Carbon Dioxide <5 L* (22-30) mmol/L BUN 44 H (9-20) mg/dL Creatinine 1.79 H (0.66-1.25) mg/dL Glucose 1141 H* (74-99) mg/dL POC Glucose (mg/dL) >600 H (75-99) mg/dL Magnesium 2.8 H (1.6-2.3) mg/dL Alkaline Phosphatase 177 H (38-126) U/L Urine Protein Trace H (Negative) Urine Glucose (UA) 4+ H (Negative) Urine Ketones 3+ H (Negative) Urine Blood Small H (Negative) Urine Mucus Rare H (None) /hpf 03/22/19 03/22/19 03/22/19 Range/Units 09:03 09:23 09:23 Lymphocytes # (1.0-4.8) k/uL VBG pH 7.09 L* (7.31-7.41) VBG pCO2 15 L* (37-51) mmHg VBG HCO3 4 L* (24-28) mmol/L Sodium (137-145) mmol/L Potassium (3.5-5.1) mmol/L Chloride 112 H (98-107) mmol/L Carbon Dioxide <5 L* (22-30) mmol/L BUN 42 H (9-20) mg/dL Creatinine 1.55 H (0.66-1.25) mg/dL Glucose 805 H* (74-99) mg/dL POC Glucose (mg/dL) >600 H (75-99) mg/dL Magnesium (1.6-2.3) mg/dL Alkaline Phosphatase (38-126) U/L Urine Protein (Negative) Urine Glucose (UA) (Negative) Urine Ketones (Negative) Urine Blood (Negative) Urine Mucus (None) /hpf 03/22/19 03/22/19 Range/Units 11:43 11:54 Lymphocytes # (1.0-4.8) k/uL VBG pH (7.31-7.41) VBG pCO2 (37-51) mmHg VBG HCO3 (24-28) mmol/L Sodium (137-145) mmol/L Potassium (3.5-5.1) mmol/L Chloride (98-107) mmol/L Carbon Dioxide (22-30) mmol/L BUN (9-20) mg/dL Creatinine (0.66-1.25) mg/dL Glucose 606 H* (74-99) mg/dL POC Glucose (mg/dL) >600 H (75-99) mg/dL Magnesium (1.6-2.3) mg/dL Alkaline Phosphatase (38-126) U/L Urine Protein (Negative) Urine Glucose (UA) (Negative) Urine Ketones (Negative) Urine Blood (Negative) Urine Mucus (None) /hpf Thrombosis Risk Factor Assmnt - Choose All That Apply Any of the Below Risk Factors Present?: Yes Each Factor Represents 1 point: Obesity (BMI >25) Other Risk Factors: Yes Each Risk Factor Represents 2 Points: Age 61-74 years Other congenital or acquired thrombophilia - If yes, enter type in comment: No Thrombosis Risk Factor Assessment Total Risk Factor Score: 3 Thrombosis Risk Factor Assessment Level: Moderate Risk Assessment and Plan Plan: -hyperglycemia with diabetic ketoacidosis I cannot rule out hyperosmolar state.will be continued on IV insulin drip IV fluids will be switched to half- normal saline because of hypernatremia and hyperchloremia. -Hyperkalemia secondary to metabolic acidosis.patient will need frequent labs. Patient will need close monitoring as well. -Metabolic acidosis anion gap secondary to hyperchloremia and diabetic ketoacidosis. type 2 diabetes mellitus noncompliance with medications, patient is insulin deficient because of which patient will need to be on subcutaneous insulin upon discharge recommend to start on 20-25 units long-acting along with 5 units pre- meal and up titrate if needed can continue metformin. to metabolic encephalopathy secondary to hyperosmolar state or DKA -nausea vomiting may be gastroenteritis or gastritis or even secondary to DKA patient then we will need to be on Protonix -gastroesophageal reflux disease -Hyperlipidemia -Bipolar disorder DVT prophylaxis with subcutaneous heparin
[2019-03-22 13:48] LABS: Glucose,Whole Blood 421 mg/dL (75-99)
[2019-03-22 13:54] LABS: Potassium 4.3 mmol/L (3.5-5.1)
[2019-03-22 15:06] LABS: Glucose,Whole Blood 342 mg/dL (75-99)
[2019-03-22 16:10] LABS: Glucose,Whole Blood 301 mg/dL (75-99)
[2019-03-22] MEDS: HEPARIN SODIUM,PORCINE 5,000 UNIT/ML 1 ML VIAL SQ SCH (16:45)
[2019-03-22 17:19] LABS: Glucose,Whole Blood 257 mg/dL (75-99)
[2019-03-22] MEDS: D5-0.45% NACL WITH KCL 20MEQ/L 1,000 ML IV SCH (17:25)
[2019-03-22 18:08] LABS: Glucose,Whole Blood 244 mg/dL (75-99)
[2019-03-22 19:07] LABS: Albumin 4.1 g/dL (3.5-5.0); Calcium 9.6 mg/dL (8.4-10.2); Phosphorus 1.6 mg/dL (2.5-4.5); Potassium 3.8 mmol/L (3.5-5.1); Total Bilirubin 0.5 mg/dL (0.2-1.3)
[2019-03-22 19:09] LABS: Glucose,Whole Blood 269 mg/dL (75-99)
[2019-03-22 20:04] LABS: Glucose,Whole Blood 234 mg/dL (75-99)
[2019-03-22] MEDS: ATORVASTATIN 40 MG TAB PO SCH (20:42)
[2019-03-22] MEDS: OLANZapine 10 MG TAB PO SCH (20:42)
[2019-03-22 21:00] LABS: Glucose,Whole Blood 201 mg/dL (75-99)
[2019-03-22 22:00] LABS: Glucose,Whole Blood 162 mg/dL (75-99)
[2019-03-22 23:00] LABS: Glucose,Whole Blood 140 mg/dL (75-99)
[2019-03-22 23:21] LABS: Albumin 3.9 g/dL (3.5-5.0); Calcium 9.6 mg/dL (8.4-10.2); Magnesium 2.4 mg/dL (1.6-2.3); Phosphorus 1.3 mg/dL (2.5-4.5); Potassium 3.7 mmol/L (3.5-5.1); Total Bilirubin 0.5 mg/dL (0.2-1.3); Total Protein 6.9 g/dL (6.3-8.2)
[2019-03-23] MEDS: HEPARIN SODIUM,PORCINE 5,000 UNIT/ML 1 ML VIAL SQ SCH ×3 (00:07→17:01)
[2019-03-23 00:08] LABS: Glucose,Whole Blood 117 mg/dL (75-99)
[2019-03-23] MEDS: D5-0.45% NACL WITH KCL 20MEQ/L 1,000 ML IV SCH ×3 (00:09→14:31)
[2019-03-23 01:06] LABS: Glucose,Whole Blood 140 mg/dL (75-99)
[2019-03-23] MEDS: SODIUM CHLORIDE 0.45% 1,000 ML IV SCH ×3 (01:08→14:33)
[2019-03-23 02:01] LABS: Hemoglobin A1C 13.9 % (4.0-6.0)
[2019-03-23 02:02] LABS: Glucose,Whole Blood 216 mg/dL (75-99)
[2019-03-23 02:57] LABS: Glucose,Whole Blood 201 mg/dL (75-99)
[2019-03-23 03:58] LABS: ALT 41 U/L (21-72); AST 21 U/L (17-59); African American GFR (CKD) >90 (>60 ml/min/1.73 sqM); Albumin 3.6 g/dL (3.5-5.0); Alkaline Phosphatase 109 U/L (38-126); Anion Gap 9 mmol/L; Blood Urea Nitrogen 29 mg/dL (9-20); Calcium 8.8 mg/dL (8.4-10.2); Carbon Dioxide 15 mmol/L (22-30); Chloride 121 mmol/L (98-107); Glucose 224 mg/dL (74-99); Phosphorus 1.3 mg/dL (2.5-4.5); Potassium 4.1 mmol/L (3.5-5.1); Sodium 145 mmol/L (137-145); Total Bilirubin 0.6 mg/dL (0.2-1.3); Total Protein 6.4 g/dL (6.3-8.2)
[2019-03-23 04:17] LABS: Glucose,Whole Blood 278 mg/dL (75-99)
[2019-03-23 05:06] LABS: Glucose,Whole Blood 327 mg/dL (75-99)
[2019-03-23 06:02] LABS: Glucose,Whole Blood 323 mg/dL (75-99)
[2019-03-23] MEDS: PANTOPRAZOLE 40 MG TABLET PO SCH (06:32)
[2019-03-23 07:11] LABS: Glucose,Whole Blood 337 mg/dL (75-99)
[2019-03-23 07:26] LABS: Albumin 3.3 g/dL (3.5-5.0); Calcium 8.8 mg/dL (8.4-10.2); Total Bilirubin 0.6 mg/dL (0.2-1.3)
[2019-03-23 07:39] LABS: Basophils # (A) 0.1 k/uL (0-0.2); Basophils % (A) 1 %; Eosinophils % (A) 0 %; HCT 41.2 % (39.0-53.0); Lymphocytes # (A) 0.9 k/uL (1.0-4.8); Lymphocytes % (A) 8 %; MCH 30.4 pg (25.0-35.0); Monocytes # (A) 0.7 k/uL (0-1.0); Monocytes % (A) 6 %; Neutrophils # (A) 9.6 k/uL (1.3-7.7); Neutrophils % (A) 84 %; Platelet Count 268 k/uL (150-450); RBC 4.61 m/uL (4.30-5.90); RDW 13.6 % (11.5-15.5); WBC 11.4 k/uL (3.8-10.6)
[2019-03-23 07:52] LABS: MCV 89.4 fL (80.0-100.0)
[2019-03-23 08:05] LABS: Glucose,Whole Blood 368 mg/dL (75-99)
[2019-03-23] MEDS: CITALOPRAM HYDROBROMIDE 10 MG TAB PO SCH (08:11)
[2019-03-23] MEDS: DOXAZOSIN 4 MG TAB PO SCH (08:11)
[2019-03-23] MEDS ORDERED: VITAMIN E (DL,TOCOPHERYL ACET) 400 UNIT CAP PO SCH (09:00)
[2019-03-23 09:02] LABS: Glucose,Whole Blood 306 mg/dL (75-99)
[2019-03-23 10:05] LABS: Glucose,Whole Blood 294 mg/dL (75-99)
[2019-03-23 11:02] LABS: Glucose,Whole Blood 293 mg/dL (75-99)
[2019-03-23 12:06] LABS: Glucose,Whole Blood 255 mg/dL (75-99)
[2019-03-23 13:20] LABS: Glucose,Whole Blood 193 mg/dL (75-99)
[2019-03-23 13:22] LABS: ALT 44 U/L (21-72); AST 22 U/L (17-59); African American GFR (CKD) >90 (>60 ml/min/1.73 sqM); Alkaline Phosphatase 106 U/L (38-126); Anion Gap 8 mmol/L; Blood Urea Nitrogen 22 mg/dL (9-20); Calcium 8.7 mg/dL (8.4-10.2); Carbon Dioxide 16 mmol/L (22-30); Chloride 121 mmol/L (98-107); Glucose 241 mg/dL (74-99); Potassium 3.6 mmol/L (3.5-5.1); Sodium 145 mmol/L (137-145); Total Bilirubin 0.7 mg/dL (0.2-1.3); Total Protein 5.6 g/dL (6.3-8.2)
[2019-03-23 13:35] LABS: Phosphorus 0.5 mg/dL (2.5-4.5)
[2019-03-23 14:14] LABS: Glucose,Whole Blood 202 mg/dL (75-99)
[2019-03-23 15:02] LABS: Glucose,Whole Blood 260 mg/dL (75-99)
[2019-03-23] MEDS: INSULIN REGULAR 100 UNIT in SODIUM CHLORIDE 0.9% 100 ML IV SCH (15:06)
[2019-03-23 16:07] LABS: Glucose,Whole Blood 218 mg/dL (75-99)
[2019-03-23] MEDS: POTAS-SOD-PHOS 278-164-250 MG 1 EACH PACKET PO SCH ×2 (17:01→20:53)
[2019-03-23 17:09] LABS: Glucose,Whole Blood 223 mg/dL (75-99)
[2019-03-23 18:03] LABS: Glucose,Whole Blood 199 mg/dL (75-99)
[2019-03-23] MEDS: INSULN ASP PRT/INSULIN ASPART 100 UNIT/ML 10 ML VIAL SQ SCH (18:26)
[2019-03-23 20:48] LABS: Glucose,Whole Blood 224 mg/dL (75-99)
[2019-03-23] MEDS: SODIUM BICARBONATE TAB 650 MG TAB PO SCH (20:53)
[2019-03-23] MEDS: OLANZapine 10 MG TAB PO SCH (20:53)
[2019-03-23] MEDS: ATORVASTATIN 40 MG TAB PO SCH (20:53)
[2019-03-23 21:01] VITALS: RESP 17
--- NOTE | 2019-03-23 21:38 | P.PN ---
Progress Note - Text Progress Note Date: 03/23/19 Interval history: This is a 63-year-old male patient of Dr. Lipscomb. Admitted with diabetic ketoa cidosis. Also admitted with metabolic encephalopathy. Patient has been on insulin drip. Today-on insulin drip. Also some questions. Hungry wants food. Later did eat. Review of systems: Was done for constitutional, cardiovascular, GI, pulmonary. relevant finding as above Active Medications Atorvastatin Calcium (Lipitor) 40 mg PO [facility] Last Admin: 03/23/19 20:53 Dose: 40 mg Documented by: Citalopram Hydrobromide (Celexa) 30 mg PO DAILY [facility] Last Admin: 03/23/19 08:11 Dose: 30 mg Documented by: Doxazosin Mesylate (Cardura) 8 mg PO DAILY [facility] Last Admin: 03/23/19 08:11 Dose: 8 mg Documented by: Enoxaparin Sodium (Lovenox) 40 mg SQ DAILY [facility] Sodium Chloride (Saline 0.45%) 1,000 mls @ 150 mls/hr IV .Q6H40M [facility] Last Admin: 03/23/19 14:33 Dose: Not Given Documented by: Insulin Aspart (Novolog Mix 70-30 Vial) 10 unit SQ AC-BID [facility] Last Admin: 03/23/19 18:26 Dose: 10 unit Documented by: Insulin Aspart (Novolog Mix 70-30 Vial) 5 unit SQ AC-LUNCH [facility] Naloxone HCl (Narcan) 0.2 mg IV Q2M PRN PRN Reason: Opioid Reversal Olanzapine (Zyprexa) 20 mg PO [facility] Last Admin: 03/23/19 20:53 Dose: 20 mg Documented by: Ondansetron HCl (Zofran) 4 mg IVP Q8HR PRN PRN Reason: Nausea And Vomiting Pantoprazole Sodium (Protonix) 40 mg PO AC-BRKFST [facility] Last Admin: 03/23/19 06:32 Dose: 40 mg Documented by: Potassium Phos/Sodium Phos (Neutra-Phos Packet) 1 each PO TID [facility] Last Admin: 03/23/19 20:53 Dose: 1 each Documented by: Sodium Bicarbonate (Sodium Bicarbonate Tab) 650 mg PO TID [facility] Last Admin: 03/23/19 20:53 Dose: 650 mg Documented by: On examination: VITAL SIGNS: 97.5, 81, 18, 116/68, 94% room air GENERAL APPEARANCE:. Lying in bed, awake. HEENT: Normal external appearance of nose and ear. Oral cavity dry EYES: Right artificial eye. Conjunctiva normal. NECK: JVD not raised. Mass not palpable. RESPIRATORY: Respiratory effort normal. Lungs clear to auscultation. CARDIOVASCULAR: First and second sounds normal. No edema. ABDOMEN: Soft. Liver and spleen not palpable. No tenderness. No mass palpable. PSYCHIATRY: He can tell his name. Knows that he is in the hospital. Struggle to remember the year. Did state that he is hungry. 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 We'll DC the insulin drip this evening. Start the patient on Novolin 70/30 10 units before breakfast and supper and 5 units before lunch. Change Accu-Cheks to 2 before meals at bedtime. Care was discussed at length with the nurse several times. Replace phosphorus with Neutra-Phos. Repeat labs in the morning.
[2019-03-24 01:56] LABS: Glucose,Whole Blood 280 mg/dL (75-99)
[2019-03-24] MEDS: INSULIN ASPART (NovoLOG) 100 UNIT/ML VIAL SQ SCH ×4 (02:08→17:06)
[2019-03-24 06:38] LABS: Glucose,Whole Blood 316 mg/dL (75-99)
[2019-03-24] MEDS: SODIUM CHLORIDE 0.45% 1,000 ML IV SCH ×2 (06:46→11:38)
[2019-03-24] MEDS: PANTOPRAZOLE 40 MG TABLET PO SCH (07:47)
[2019-03-24] MEDS: INSULN ASP PRT/INSULIN ASPART 100 UNIT/ML 10 ML VIAL SQ SCH (07:48)
[2019-03-24] MEDS ORDERED: ENOXAPARIN 40 MG/0.4 ML SYRINGE SQ SCH (09:00)
[2019-03-24] MEDS: DOXAZOSIN 4 MG TAB PO SCH (09:07)
[2019-03-24] MEDS: SODIUM BICARBONATE TAB 650 MG TAB PO SCH ×2 (09:07→16:53)
[2019-03-24] MEDS: CITALOPRAM HYDROBROMIDE 10 MG TAB PO SCH (09:07)
[2019-03-24] MEDS: POTAS-SOD-PHOS 278-164-250 MG 1 EACH PACKET PO SCH ×2 (09:07→16:53)
[2019-03-24 12:30] LABS: Glucose,Whole Blood 333 mg/dL (75-99)
[2019-03-24] MEDS ORDERED: INSULN ASP PRT/INSULIN ASPART 100 UNIT/ML 10 ML VIAL SQ SCH ×3 (12:30→17:30)
[2019-03-24 13:10] LABS: African American GFR (CKD) >90 (>60 ml/min/1.73 sqM); Anion Gap 9 mmol/L; Blood Urea Nitrogen 19 mg/dL (9-20); Calcium 9.1 mg/dL (8.4-10.2); Carbon Dioxide 20 mmol/L (22-30); Chloride 114 mmol/L (98-107); Glucose 360 mg/dL (74-99); Phosphorus 2.8 mg/dL (2.5-4.5); Potassium 4.2 mmol/L (3.5-5.1); Sodium 143 mmol/L (137-145)
[2019-03-24 14:22] VITALS: BMI 29.0
[2019-03-24 14:35] VITALS: BP 111/73; PULSE 88; TEMP 97.6
[2019-03-24 16:56] LABS: Glucose,Whole Blood 294 mg/dL (75-99)
--- NOTE | 2019-03-24 22:24 | P.DS ---
Providers Date of admission: 03/22/19 07:36 Expected date of discharge: 03/24/19 Attending physician: Cj Johnson Primary care physician: Kedar Lipscomb Hospital Course: Hospital course: This is a 63-year-old male patient of Dr. Lipscomb. Admitted with diabetic ketoacidosis. Also admitted with metabolic encephalopathy. Patient has been on insulin drip. Patient did respond well. Answering questions for more appropriately now. Diabetic education was carried out. Patient switched over to Novolin 70/30/30 insulin mix. Diabetic education was done with the family. Supplies were given. Discussed with the family preservation caseworker in detail. Discussion and discharge planning more than 35 minutes On examination: VITAL SIGNS: 97.6, 88, 16, 11 , 94% room air GENERAL APPEARANCE:. Lying in bed, awake. HEENT: Normal external appearance of nose and ear. Oral cavity dry EYES: Right artificial eye. Conjunctiva normal. NECK: JVD not raised. Mass not palpable. RESPIRATORY: Respiratory effort normal. Lungs clear to auscultation. CARDIOVASCULAR: First and second sounds normal. No edema. ABDOMEN: Soft. Liver and spleen not palpable. No tenderness. No mass palpable. PSYCHIATRY: Able to answer questions more appropriately INVESTIGATIONS, reviewed in the clinical context: Potassium 4.2 creatinine 0.8. 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 Dose of metformin increased to thousand milligrams twice a day. Patient to keep a log of his Accu-Chek. Follow with his PCP. Patient Condition at Discharge: Stable Plan - Discharge Summary Discharge Rx Participant: No New Discharge Prescriptions: New metFORMIN HCL 1,000 mg PO BID #60 tab Insuln Asp Prt/Insulin Aspart [NovoLOG MIX 70-30 VIAL] 7 unit SQ AC-LUNCH vial Insuln Asp Prt/Insulin Aspart [NovoLOG MIX 70-30 VIAL] 14 unit SQ AC-BID #1 vial Sodium Bicarbonate Tab 650 mg PO TID #30 tab Continue Omeprazole 40 mg PO DAILY Terazosin [Hytrin] 5 mg PO BID Vitamin E (Dl,Tocopheryl Acet) [Vitamin E] 400 unit PO DAILY Cyanocobalamin (Vitamin B-12) [Vitamin B-12] 1,000 mcg PO DAILY OLANZapine 20 mg PO HS Citalopram Hydrobromide [CeleXA] 30 mg PO DAILY Atorvastatin [Lipitor] 40 mg PO HS clonazePAM 1 mg PO BID Multivit-Min/Folic/Vit K/Lycop [Men's Multivitamin Tablet] 1 tab PO DAILY Fish Oil/Dha/Epa [Fish Oil 1,200 mg Fish Oil] 1 cap PO DAILY Cinnamon Bark [Cinnamon] 1,000 mg PO DAILY Discontinued metFORMIN HCL [Glucophage] 1,000 mg PO BID Cholecalciferol [Vitamin D3 (25 Mcg = 1000 Iu)] 1,000 unit PO DAILY Discharge Medication List Omeprazole 40 mg PO DAILY 04/13/16 [History] Terazosin [Hytrin] 5 mg PO BID 10/21/16 [History] Atorvastatin [Lipitor] 40 mg PO HS 03/22/19 [History] Cinnamon Bark [Cinnamon] 1,000 mg PO DAILY 03/22/19 [History] Citalopram Hydrobromide [CeleXA] 30 mg PO DAILY 03/22/19 [History] Cyanocobalamin (Vitamin B-12) [Vitamin B-12] 1,000 mcg PO DAILY 03/22/19 [History] Fish Oil/Dha/Epa [Fish Oil 1,200 mg Fish Oil] 1 cap PO DAILY 03/22/19 [History] Multivit-Min/Folic/Vit K/Lycop [Men's Multivitamin Tablet] 1 tab PO DAILY 03/22/19 [History] OLANZapine 20 mg PO HS 03/22/19 [History] Vitamin E (Dl,Tocopheryl Acet) [Vitamin E] 400 unit PO DAILY 03/22/19 [History] clonazePAM 1 mg PO BID 03/22/19 [History] Insuln Asp Prt/Insulin Aspart [NovoLOG MIX 70-30 VIAL] 7 unit SQ AC-LUNCH vial 03/24/19 [Rx] Insuln Asp Prt/Insulin Aspart [NovoLOG MIX 70-30 VIAL] 14 unit SQ AC-BID #1 vial 03/24/19 [Rx] Sodium Bicarbonate Tab 650 mg PO TID #30 tab 03/24/19 [Rx] metFORMIN HCL 1,000 mg PO BID #60 tab 03/24/19 [Rx] Follow up Appointment(s)/Referral(s): Kody Cobb,Equipment [NON-STAFF] - Keadr Lipscomb MD [Primary Care Provider] - 03/28/19 10:30 am (Wednesday) [facility], [NON-STAFF] - Patient Instructions/Handouts: Diabetic Ketoacidosis (DC) Activity/Diet/Wound Care/Special Instructions: Accu-Cheks daily with glucometer Patient being sent home on insulin Discharge Disposition: HOME SELF-CARE
== END 2019-03-24 18:11 | disposition home health service (06) | DRG 637 ==
LOC: EC 06:02 → 3SCARD 07:36
PROVIDERS: ADMIT Hospitalist; ATTEND Hospitalist
DX: E11.10 Type 2 diabetes mellitus with ketoacidosis without coma (principal); G93.41 Metabolic encephalopathy; E87.0 Hyperosmolality and hypernatremia; E83.39 Other disorders of phosphorus metabolism; E87.5 Hyperkalemia; E78.5 Hyperlipidemia, unspecified; F17.200 Nicotine dependence, unspecified, uncomplicated; K21.9 Gastro-esophageal reflux disease without esophagitis; M19.072 Primary osteoarthritis, left ankle and foot; M19.071 Primary osteoarthritis, right ankle and foot; H54.7 Unspecified visual loss; Z90.01 Acquired absence of eye; F41.9 Anxiety disorder, unspecified; F32.9 Major depressive disorder, single episode, unspecified; G47.00 Insomnia, unspecified; R25.1 Tremor, unspecified; Z79.84 Long term (current) use of oral hypoglycemic drugs; Z79.899 Other long term (current) drug therapy; Z79.890 Hormone replacement therapy; Z91.14 Patient's other noncompliance with medication regimen; Z80.51 Family history of malignant neoplasm of kidney; Z80.8 Family history of malignant neoplasm of other organs or systems; Z82.0 Family history of epilepsy and other diseases of the nervous system
CPT/HCPCS: 36415; 71046; 80048; 80051; 80053; 80306; 81001; 82009; 82140; 82565; 82803; 82947; 83036; 83735; 84100; 84484; 84520; 85025; 85610; 85730; 87040; 93005; 96360; 96361; 99285

== ENCOUNTER → 2021-07-22 | Outpatient (CLI) | payer MEDICARE ==
--- NOTE | 2021-07-22 12:50 | US ---
EXAMINATION TYPE: US duplex aorta DATE OF EXAM: 07/22/2021 COMPARISON: NONE CLINICAL HISTORY: Z13.6 screening for AAA. screening EXAM MEASUREMENTS: Abdominal Aorta: Proximal: 2.0 x 1.6cm Mid: 1.9 x 1.7cm Distal: 2.3 x 2.0cm Bifurcation: RT: 1.3 x 1.2cm LT: 1.4 x 1.3cm no evidence of AAA at this time within visualized portions. Aorta is successfully visualized to the bifurcation. IMPRESSION: No ultrasound evidence for greater than 3.0 cm AAA.
== END | disposition home or self-care (01) ==
LOC: RADUSWWP 12:07
PROVIDERS: ATTEND Family Medicine
DX: Z13.6 Encounter for screening for cardiovascular disorders (principal)
CPT/HCPCS: 93979

== ENCOUNTER 2021-10-29 09:24 | Day surgery (SDC) | payer MEDICARE ==
[2021-10-28 11:13] VITALS: BMI 33.3
[~2021-10-29 09:24] MED LIST: LACTATED RINGERS 1,000 ML IV SCH; LIDOCAINE 1% (10MG/ML) FOR IV START INTRADERMA PRN
[2021-10-29 10:42] VITALS: TEMP 97.6
[2021-10-29 10:54] LABS: Glucose,Whole Blood 114 mg/dL (75-99)
[2021-10-29] MEDS ORDERED: PROPOFOL 10 MG/ML 20 ML VIAL IV ONE (11:36)
--- NOTE | 2021-10-29 11:49 | P.PCN ---
Date of Procedure: 10/29/21 Procedure(s) Performed: BRIEF HISTORY: Patient is a 66-year-old pleasant white male scheduled for an elective colonoscopy as a part of screening for colon rectal neoplasia. PROCEDURE PERFORMED: Colonoscopy snare polyp rectum PREOPERATIVE DIAGNOSIS: Screening for colon cancer. IV sedation per Anesthesia. PROCEDURE: After informed consent was obtained, the patient, was brought into the endoscopy unit. IV sedation was administered by Anesthesia under continuous monitoring. Digital rectal examination was normal. Initially the Olympus CF-160 flexible video colonoscope was then inserted in the rectum, gradually advanced into the cecum without any difficulty. Careful examination was performed as the scope was gradually being withdrawn. Ileocecal valve and the appendiceal orifice were visualized and appeared normal. Prep was excellent. Mucosa of the cecum, ascending colon, transverse colon, descending colon, sigmoid colon, appeared normal. In the rectosigmoid colon there was a 5 mm sessile polyp removed by snare polypectomy. The rectum appeared normal. Scattered sigmoid diverticulosis seen. In the rectum there was a 5 mm polyp removed by snare polypectomy. Retroflexion was performed in the rectum and no lesions were seen. The patient tolerated the procedure well. IMPRESSION: 5 mm rectosigmoid colon polyp status post polypectomy 5 mm rectal polyp status post snare polypectomy Scattered sigmoid diverticulosis RECOMMENDATIONS: Findings of this examination were discussed with the patient as well as his family. He was advised to follow with the biopsy results. If the biopsy results adenoma he can have a repeat colonoscopy in 5 years
[2021-10-29 12:17] VITALS: BP 130/84; PULSE 74; RESP 17
== END 2021-10-29 12:30 | disposition home or self-care (01) ==
LOC: ORWHC2ENDO 09:24
PROVIDERS: ATTEND Internal Medicine Gastroenterology
DX: Z12.11 Encounter for screening for malignant neoplasm of colon (principal); K63.5 Polyp of colon; K62.1 Rectal polyp; K57.30 Diverticulosis of large intestine without perforation or abscess without bleeding
CPT/HCPCS: 45385; 88305; J2704

== ENCOUNTER 2022-11-26 16:07 | Observation (INO) | payer MEDICARE, OTHER ==
[2022-11-26 16:41] LABS: Basophils % (A) 1 %; Eosinophils # (A) 0.3 k/uL (0-0.7); Eosinophils % (A) 5 %; HCT 45.2 % (39.0-53.0); HGB 14.8 gm/dL (13.0-17.5); Lymphocytes # (A) 1.8 k/uL (1.0-4.8); Lymphocytes % (A) 26 %; MCH 30.2 pg (25.0-35.0); MCHC 32.8 g/dL (31.0-37.0); MCV 92.1 fL (80.0-100.0); Mean Platelet Volume 7.4; Monocytes # (A) 0.6 k/uL (0-1.0); Monocytes % (A) 8 %; Neutrophils # (A) 4.1 k/uL (1.3-7.7); Neutrophils % (A) 59 %; Platelet Count 234 k/uL (150-450); RBC 4.91 m/uL (4.30-5.90); RDW 12.9 % (11.5-15.5)
[2022-11-26 16:56] LABS: ALT 36 U/L (4-49); AST 28 U/L (17-59); African American GFR (CKD) 79 (>60 ml/min/1.73 sqM); Albumin 4.3 g/dL (3.5-5.0); Alkaline Phosphatase 92 U/L (38-126); Anion Gap 12 mmol/L; Blood Urea Nitrogen 26 mg/dL (9-20); Calcium 9.4 mg/dL (8.4-10.2); Carbon Dioxide 22 mmol/L (22-30); Chloride 103 mmol/L (98-107); Glucose 118 mg/dL (74-99); Magnesium 1.8 mg/dL (1.6-2.3); Non-African American GFR(CKD) 69 (>60 ml/min/1.73 sqM); Sodium 137 mmol/L (137-145); Total Bilirubin 0.8 mg/dL (0.2-1.3)
[2022-11-26 16:58] LABS: Partial Thromboplastin Time 25.7 sec (22.0-30.0); Prothrombin Time 10.4 sec (9.0-12.0)
--- NOTE | 2022-11-26 17:17 | XR ---
EXAMINATION TYPE: XR chest 2V DATE OF EXAM: 11/26/2022 5:06 PM COMPARISON: Chest x-ray 03/22/2019 TECHNIQUE: XR chest 2V . CLINICAL INDICATION:Male, 67 years old with history of Chest Pain; FINDINGS: Lungs/Pleura: There is no evidence of pleural effusion, focal consolidation, or pneumothorax. Pulmonary vascularity: Unremarkable. Heart/mediastinum: Cardiomediastinal silhouette is unremarkable. Musculoskeletal: Multiple level degenerative disc disease changes seen throughout the spine. IMPRESSION: No acute cardiopulmonary disease/process.
--- NOTE | 2022-11-26 19:26 | ED ---
Chest Pain HPI - General Chief Complaint: Chest Pain Stated Complaint: chest pain Time Seen by Provider: 11/26/22 19:08 Source: patient Mode of arrival: ambulatory Limitations: no limitations - History of Present Illness Initial Comments: 67-year-old female presenting with chief complaint of chest pain that ongoing for the last 4 days. Patient has history of diabetes mellitus or hyperlipidemia. He is previously a half pack-a-day smoker and quit 2 weeks ago. Pain is a pressure-like sensation to the center of the chest. No radiation of pain. No shortness of breath or palpitations. No numbness, tingling, weakness. No abdominal pain, nausea, vomiting. No cough, fever, chills. No lower extremity swelling. - Related Data Home Medications Medication Instructions Recorded Confirmed Omeprazole 40 mg PO DAILY 04/13/16 11/26/22 Atorvastatin [Lipitor] 40 mg PO HS 03/22/19 11/26/22 OLANZapine 20 mg PO HS 03/22/19 11/26/22 clonazePAM 1 mg PO DAILY 03/22/19 11/26/22 Empaglifloz/Linaglip/Metformin 2 tab PO DAILY 10/28/21 11/26/22 [Trijardy Xr 12.5-2.5-1,000 mg] Azelastine HCl [Astelin Nasal 2 sprays EA NOSTRIL BID 11/26/22 11/26/22 [place]] Citalopram Hydrobromide [CeleXA] 40 mg PO DAILY 11/26/22 11/26/22 Fluticasone Nasal [place] [Flonase 2 spray EA NOSTRIL DAILY 11/26/22 11/26/22 Nasal [place]] clonazePAM [KlonoPIN] 2 mg PO HS 11/26/22 11/26/22 hydrOXYzine HCL [Atarax] 50 mg PO TID PRN 11/26/22 11/26/22 lamoTRIgine [LaMICtal] 75 mg PO BID 11/26/22 11/26/22 lisinopriL [Zestril] 5 mg PO DAILY 11/26/22 11/26/22 Allergies Allergy/AdvReac Type Severity Reaction Status Date / Time No Known Allergies Allergy Verified 11/26/22 20:13 Review of Systems ROS Statement: Those systems with pertinent positive or pertinent negative responses have been documented in the HPI. ROS Other: All systems not noted in ROS Statement are negative. EKG Findings - EKG Comments: EKG Findings:: Sinus bradycardia ventricular rate 54. NM interval 189. QRS 158. QTC 480. QTc 467. Right bundle branch block. 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 Past Anesthesia/Blood Transfusion Reactions: No Reported Reaction Past Psychological History: Anxiety, Bipolar, Depression Smoking Status: Former smoker Past Alcohol Use History: None Reported Past Drug Use History: None Reported - Past Family History Father History Unknown: Yes Family Medical History: Dementia Additional Family Medical History / Comment(s): Father is living. Mother Family Medical History: Cancer Additional Family Medical History / Comment(s): Kidney cancer with nephrectomy and skin cancer removals. Mother is living. General Exam Limitations: no limitations General appearance: alert, in no apparent distress Head exam: Present: atraumatic, normocephalic, normal inspection Eye exam: Present: normal appearance, PERRL, EOMI. Absent: scleral icterus, conjunctival injection, periorbital swelling Neck exam: Present: normal inspection, full ROM Respiratory exam: Present: normal lung sounds bilaterally. Absent: respiratory distress, wheezes, rales, rhonchi, stridor Cardiovascular Exam: Present: regular rate, normal rhythm, normal heart sounds. Absent: systolic murmur, diastolic murmur, rubs, gallop, clicks Extremities exam: Absent: pedal edema Neurological exam: Present: alert, oriented X3, CN II-XII intact Psychiatric exam: Present: normal affect, normal mood Skin exam: Present: warm, dry, intact, normal color. Absent: rash Course Vital Signs 11/26/22 11/26/22 11/27/22 16:12 23:31 01:49 Temperature 98.4 F 98.4 F 97.8 F Pulse Rate 57 L 59 L 60 Respiratory 20 16 16 Rate Blood Pressure 106/68 110/64 108/65 O2 Sat by Pulse 96 97 99 Oximetry Chest Pain MDM - MDM Was pt. sent in by a medical professional or institution ([facility], [employer] LOAN OFFICER, urgent care, hospital, or prison...) When possible be specific @ -No Did you speak to anyone other than the patient for history (EMS, parent, family, police, friend...)? What history was obtained from this source @ -No Did you review nursing and triage notes (agree or disagree)? Why? @ -I reviewed and agree with nursing and triage notes Were old charts reviewed (outside hosp., previous admission, EMS record, old EKG, old radiological studies, urgent care reports/EKG's, prison records)? Report findings @ -No old charts were reviewed Differential Diagnosis (chest pain, altered mental status, abdominal pain women, abdominal pain men, vaginal bleeding, weakness, fever, dyspnea, syncope, headache, dizziness, GI bleed, back pain, seizure, CVA, palpatations, mental health, musculoskeletal)? @ -MDM Differential Chest Pain: Stable Angina, Unstable Angina, STEMI, NSTEMI Aortic Dissection, Pneumothorax, Musculoskeletal, Esophageal Spasm GERD, Cholecystitis, Pancreatitis, Zoster This is not meant to be an all-inclusive list. EKG interpreted by me (3pts min.). @ -As above X-rays interpreted by me (1pt min.). @ -No acute findings on chest x-ray CT interpreted by me (1pt min.). @ -None done U/S interpreted by me (1pt. min.). @ -None done What testing was considered but not performed or refused? (CT, X-rays, U/S, labs)? Why? @ -None What meds were considered but not given or refused? Why? @ -None Did you discuss the management of the patient with other professionals (professionals i.e. [facility], [employer]STATE LOAN OFFICER, lab, RT, psych nurse, vp digital marketing social media and crm, manager clinical applications, teacher, medical scientific officer, case maker)? Give summary @ -I spoke with the sound physician on-call who accepted admission Was smoking cessation discussed for >3mins.? @ -No Was critical care preformed (if so, how long)? @ -No Were there social determinants of health that impacted care today? How? (Homelessness, low income, unemployed, alcoholism, drug addiction, transportation, low edu. Level, literacy, decrease access to med. care, longterm, rehab)? @ -No Was there de-escalation of care discussed even if they declined (Discuss DNR or withdrawal of care, Hospice)? DNR status @ -No What co-morbidities impacted this encounter? (DM, HTN, Smoking, COPD, CAD, Cancer, CVA, ARF, Chemo, Hep., AIDS, mental health diagnosis, sleep apnea, morbid obesity)? @ -Diabetes, hyperlipidemia, previous smoker Was patient admitted / discharged? Hospital course, mention meds given and route, prescriptions, significant lab abnormalities, going to OR and other pertinent info. @ -67-year-old male presenting with chief complaint of chest pain. Physical examination is unremarkable. Negative troponin, EKG shows no acute findings, negative chest x-ray. Patient will be admitted for observation and evaluation by cardiology. Patient is agreeable with this plan. I discussed this case with my attending Dr. Cardona. Undiagnosed new problem with uncertain prognosis? @ -No Drug Therapy requiring intensive monitoring for toxicity (Heparin, Nitro, Insulin, Cardizem)? @ -No Were any procedures done? @ -No Diagnosis/symptom? @ -Chest pain Acute, or Chronic, or Acute on Chronic? @ -Acute Uncomplicated (without systemic symptoms) or Complicated (systemic symptoms)? @ -Complicated Side effects of treatment? @ -No Exacerbation, Progression, or Severe Exacerbation? @ -No Poses a threat to life or bodily function? How? (Chest pain, [place], [place], pneumonia, PE, COPD, DKA, ARF, appy, cholecystitis, CVA, Diverticulitis, Homicidal, Suicidal, threat to staff... and all critical care pts) @ -Yes Disposition Clinical Impression: Chest pain Disposition: ADMITTED IP TO THIS [facility] Condition: Fair Time of Disposition: 19:26
[2022-11-26] MEDS ORDERED: NALOXONE 0.4 MG/ML 1 ML VIAL IV PRN (20:48)
[2022-11-26] MEDS ORDERED: ASPIRIN 81 MG PO STA (20:48)
[2022-11-26] MEDS ORDERED: ATORVASTATIN 80 MG TAB PO STA (21:53)
--- NOTE | 2022-11-26 21:55 | P.HPIM ---
History of Present Illness H&P Date: 11/26/22 Patient is a 67-year-old male with a PMH of hypertension, lipidemia, and type II DM who presents to the emergency room with plans of chest tightness. The patient reports that he's been experiencing intermittent substernal to tightness lasting for a few minutes over the past 1 month but reports that he is worsened earlier today which prompted him to come to the emergency room. The patient states that the pain is nonexertional, somewhat pleuritic in nature, 5 out of 10 on maximal intensity, with some associated shortness of breath without nausea, vomiting, diaphoresis, or dizziness. He reports a significant family history of heart disease. In the emergency room, EKG revealed sinus bradycardia at 51 bpm with a right bundle branch block unchanged from prior. Chest x-ray in the emergency room was unremarkable. Laboratory evaluation revealed a troponin less than 0.012. ED documentation reviewed and case discussed with ED provider. Review of systems: Pertinent positives and negatives as discussed in HPI, a complete review of systems was performed and all other systems are negative. Physical examination: Vital signs reviewed General: non toxic, no distress, appears at stated age, obese Derm: no unusual rashes/lesions, warm Head: atraumatic, normocephalic, symmetric Eyes: EOMI, no lid lag, anicteric sclera, pupils equal round reactive to light ENT: Nose and ears atraumatic Neck: No cervical lymphadenopathy, trachea midline, supple Mouth: no lip lesion, mucus membranes moist Cardiovascular: S1S2 reg, no murmur, positive dorsalis pedis pulse bilateral, no edema Lungs: CTA bilateral, no rhonchi, no rales, no accessory muscle use Abdominal: soft, nontender to palpation, no guarding Ext: muscle strength 5 out of 5 in all 4 extremities grossly, no gross muscle atrophy, no contractures, Neuro: CN II-XI grossly intact, no gross focal neuro deficits Psych: Alert, oriented, appropriate affect Assessment: Chest pain, with atypical features, rule out ACS Chronic conditions: Hypertension, hyperlipidemia, Type 2 DM Imaging: In the emergency room, EKG revealed sinus bradycardia at 51 bpm with a right bundle branch block unchanged from prior. Chest x-ray in the emergency room was unremarkable. Data Review: Laboratory evaluation revealed a troponin less than 0.012. Plan: Cardiology consulted Cardiac monitoring Continue with aspirin, statin Check d-dimer levels Insulin sliding scale and blood glucose monitoring DVT prophylaxis: Heparin subcu The patient is admitted with an anticipated less than 2 midnight stay for evaluation of chest pain CODE STATUS: Full Code Discussed with: Patient Anticipated discharge place: Home Past Medical History Past Medical History: Diabetes Mellitus, Eye Disorder, GERD/Reflux, Hyperl ipidemia, Osteoarthritis (OA) Additional Past Medical History / Comment(s): NIDDM type II, insomnia, arthritis bilateral feet, tremors in arms/hands and feet, R eye is glass d/t eye problem present since , L eye diminished vision. 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 Past Anesthesia/Blood Transfusion Reactions: No Reported Reaction Past Psychological History: Anxiety, Bipolar, Depression Smoking Status: Former smoker Past Alcohol Use History: None Reported Past Drug Use History: None Reported - Past Family History Father History Unknown: Yes Family Medical History: Dementia Additional Family Medical History / Comment(s): Father is living. Mother Family Medical History: Cancer Additional Family Medical History / Comment(s): Kidney cancer with nephrectomy and skin cancer removals. Mother is living. Medications and Allergies Home Medications Medication Instructions Recorded Confirmed Type Omeprazole 40 mg PO DAILY 04/13/16 11/26/22 History Atorvastatin [Lipitor] 40 mg PO HS 03/22/19 11/26/22 History OLANZapine 20 mg PO HS 03/22/19 11/26/22 History clonazePAM 1 mg PO DAILY 03/22/19 11/26/22 History Empaglifloz/Linaglip/Metformin 2 tab PO DAILY 10/28/21 11/26/22 History [Trijardy Xr 12.5-2.5-1,000 mg] Azelastine HCl [Astelin Nasal 2 sprays EA NOSTRIL BID 11/26/22 11/26/22 History [place]] Citalopram Hydrobromide [CeleXA] 40 mg PO DAILY 11/26/22 11/26/22 History Fluticasone Nasal [place] [Flonase 2 spray EA NOSTRIL DAILY 11/26/22 11/26/22 History Nasal [place]] clonazePAM [KlonoPIN] 2 mg PO HS 11/26/22 11/26/22 History hydrOXYzine HCL [Atarax] 50 mg PO TID PRN 11/26/22 11/26/22 History lamoTRIgine [LaMICtal] 75 mg PO BID 11/26/22 11/26/22 History lisinopriL [Zestril] 5 mg PO DAILY 11/26/22 11/26/22 History Allergies Allergy/AdvReac Type Severity Reaction Status Date / Time No Known Allergies Allergy Verified 11/26/22 20:13 Physical Exam Vitals: Vital Signs Temp Pulse Resp BP Pulse Ox 11/26/22 16:12 98.4 F 57 L 20 106/68 96 Intake and Output 11/26/22 11/26/22 11/26/22 06:59 14:59 22:59 Other: Weight 87.997 kg Results CBC & Chem 7: 11/26/22 16:28 11/26/22 16:28 Labs: Abnormal Lab Results - Last 24 Hours (Table) 11/26/22 Range/Units 16:28 BUN 26 H (9-20) mg/dL Glucose 118 H (74-99) mg/dL
[2022-11-26] MEDS: HEPARIN SODIUM,PORCINE/PF 5,000 UNIT/0.5 ML SYRINGE SQ SCH (23:26)
[2022-11-27 01:50] VITALS: TEMP 97.8
[2022-11-27 06:56] LABS: Glucose,Whole Blood 129 mg/dL (70-110)
[2022-11-27] MEDS ORDERED: INSULIN ASPART (NovoLOG) 100 UNIT/ML VIAL SQ SCH (07:30)
[2022-11-27] MEDS ORDERED: lamoTRIgine 25 MG TAB PO SCH (09:00)
[2022-11-27] MEDS ORDERED: lisinopriL 5 MG TAB PO SCH (09:00)
[2022-11-27] MEDS ORDERED: hydrOXYzine HCL 25 MG TAB PO PRN (09:00)
[2022-11-27] MEDS ORDERED: CITALOPRAM HYDROBROMIDE 20 MG TAB PO SCH (09:00)
[2022-11-27] MEDS ORDERED: FLUTICASONE 50MCG/SPRAY NASAL 16GM EA NOSTRIL SCH (09:00)
[2022-11-27] MEDS: HEPARIN SODIUM,PORCINE/PF 5,000 UNIT/0.5 ML SYRINGE SQ SCH (09:15)
[2022-11-27] MEDS ORDERED: ASPIRIN 81 MG PO SCH (09:30)
[2022-11-27 10:52] VITALS: RESP 18
--- NOTE | 2022-11-27 10:59 | P.DS ---
Providers Date of admission: 11/26/22 19:19 Expected date of discharge: 11/27/22 Attending physician: Gail Limon MD Consults: 11/26/22 20:48 Consult Physician Urgent Consulting Provider: [facility] Consult Reason/Comments: Chest pain Do you want consulting provider notified?: Yes Primary care physician: Kedar Lipscomb Hospital Course: Discharge Diagnosis: Chest pain, acute coronary event ruled out Hypertension Hyperlipidemia Ayu-ahxhizy-pihygohgr diabetes mellitus Hospital Course: Patient is a very pleasant 67-year-old male with a past medical history of hypertension, hyperlipidemia, and type II bmu-hojocsm-arfqirveq diabetes mellitus. He presented to the emergency department with a chief complaint of chest tightness/pain. Patient reported pain to right anterior chest intermittently ongoing for the past month. He underwent full evaluation in the emergency department. Upon arrival vital signs as follows blood pressure 106/68, heart rate 57, respiratory rate 20, SpO2 of 96% on room air with temp of 98.4F. EKG completed showing sinus bradycardia at 54 bpm with a right bundle branch block. Labs completed and reviewed. CBC and coags were unremarkable. D-dimer negative at 0.59. BMP unremarkable with the exception of slightly elevated BUN of 26 and glucose of 118. Magnesium normal findings at 1.8. Liver profile unremarkable. Troponin negative at less than 0.012. Chest x-ray completed negative for acute cardiopulmonary process. Patient was admitted under our services with consultation to cardiology. Troponins trended overnight all negative at less than 0.0123 draws. Hemoglobin A1c 7.5%. Lipid profile revealing elevated triglycerides of 160 otherwise normal findings. Patient was evaluated by assembly and packing supervisor recommending outpatient follow-up with their office with no further inpatient cardiac recommendations at this time clearing patient from cardiac perspective. Patient currently reports free from chest pain/discomfort and feeling well. Medically, patient is stable for discharge. No medication changes made this admission. Patient to follow up outpatient with PCP in 1-2 days and cardiology in 2 weeks. Physical exam: Patient seen and examined at bedside, also at bedside, patient currently free from any complaints. Vital signs reviewed and stable. General: Nontoxic, no distress and appears stated age. Derm: Skin warm and dry, normal coloration for ethnicity. Head: Atraumatic, normocephalic and symmetric. Eyes: EOMs intact, no lid lag, and anicteric sclera Mouth: no lip lesions, mucus membranes moist Cardiovascular: regular rate and rhythm with normal S1S2, no murmur, positive posterior tibial pulses bilaterally, and cap refill < 2 seconds. Lungs: Respirations even, regular, and unlabored on room air. Lungs CTA bilaterally, no rhonchi, no rales, no wheezing, and no accessory muscle usage. Abdominal: soft, nontender to palpation, no guarding, no appreciable organomegaly Ext: ROM intact. No gross muscle atrophy, no edema, no contractures Neuro: Speech clear, face symmetrical and CN II-XII grossly intact with no noted focal neuro deficits Psych: Alert and oriented to person, place, time, and situation. Appropriate and pleasant affect. A total of 33 minutes of time were spent preparing this complex discharge summary. Pt was discharged on 11/27/22 at 10:56 AM. Patient was seen independently by Nurse Practitioner. This document was prepared using [employer] dictation software. Please allow for errors in ski patrol director while rare they do occur. Ceferino Baez NP rendered care for this patient independently, reviewed the findings and plan as documented in the note above. I did not physically speak with or examine the patient on this date. Patient Condition at Discharge: Stable Plan - Discharge Summary New Discharge Prescriptions: Continue Omeprazole 40 mg PO DAILY OLANZapine 20 mg PO HS Atorvastatin [Lipitor] 40 mg PO HS clonazePAM 1 mg PO DAILY Empaglifloz/Linaglip/Metformin [Trijardy Xr 12.5-2.5-1,000 mg] 2 tab PO DAILY hydrOXYzine HCL [Atarax] 50 mg PO TID PRN PRN Reason: Anxiety Fluticasone Nasal [place] [Flonase Nasal [place]] 2 spray EA NOSTRIL DAILY lisinopriL [Zestril] 5 mg PO DAILY Azelastine HCl [Astelin Nasal [place]] 2 sprays EA NOSTRIL BID Citalopram Hydrobromide [CeleXA] 40 mg PO DAILY lamoTRIgine [LaMICtal] 75 mg PO BID clonazePAM [KlonoPIN] 2 mg PO HS Discharge Medication List Omeprazole 40 mg PO DAILY 04/13/16 [History] Atorvastatin [Lipitor] 40 mg PO HS 03/22/19 [History] OLANZapine 20 mg PO HS 03/22/19 [History] clonazePAM 1 mg PO DAILY 03/22/19 [History] Empaglifloz/Linaglip/Metformin [Trijardy Xr 12.5-2.5-1,000 mg] 2 tab PO DAILY 10/28/21 [History] Azelastine HCl [Astelin Nasal [place]] 2 sprays EA NOSTRIL BID 11/26/22 [History] Citalopram Hydrobromide [CeleXA] 40 mg PO DAILY 11/26/22 [History] Fluticasone Nasal [place] [Flonase Nasal [place]] 2 spray EA NOSTRIL DAILY 11/26/22 [History] clonazePAM [KlonoPIN] 2 mg PO HS 11/26/22 [History] hydrOXYzine HCL [Atarax] 50 mg PO TID PRN 11/26/22 [History] lamoTRIgine [LaMICtal] 75 mg PO BID 11/26/22 [History] lisinopriL [Zestril] 5 mg PO DAILY 11/26/22 [History] Follow up Appointment(s)/Referral(s): Gary Escobar MD [STAFF PHYSICIAN] - 2 Weeks Kedar Lipscomb MD [Primary Care Provider] - 1-2 days Patient Instructions/Handouts: Chest Pain (DC) Activity/Diet/Wound Care/Special Instructions: Activity: As tolerated. Take breaks as needed. Diet: Heart healthy and carb consistent diet. Avoid salts, or foods with hidden salts such as canned or boxed foods and frozen dinners. Extra salt makes your heart work harder and traps the fluid in your body for longer. Special Instructions: Take all of your medications as directed and remember to keep all of your doctor's appointments and follow-up as needed. Thank you for allowing us to participate in your care, it was truly a pleasure having you for our patient!!! Discharge Disposition: HOME SELF-CARE
[2022-11-27 11:24] VITALS: BP 116/70; PULSE 64
--- NOTE | 2022-11-27 11:29 | P.CRDCN ---
History of Present Illness History of present illness: HISTORY OF PRESENT ILLNESS: This is a 67-year-old male with a past medical history significant for hypertension and hyperlipidemia. Patient does not follow with a nurse advisor. We have been asked to see the patient in consultation for chest pain. Patient examined at the bedside. Patient states earlier in the week he was outside digging up a rocio iraheta and has been doing a lot of physical work in the yard over the past week. He states that he began having pain on the right side of his chest. No radiation of the pain. No nausea or vomiting. The patient's nataly st pain is reproducible with chest wall palpation. The pain is not worse or better with deep inspiration. At the time of examination, the patient denies chest pain or pressure. Vital signs are stable. * EKG reveals sinus bradycardia with right bundle branch block. No signs of acute ischemia * Chest xray negative for acute process * Laboratory data: WBC 7.0. Hemoglobin 14.8. Platelet count 234. D-dimer 0.59. Sodium 137. Potassium 4.0. B UN 26. Creatinine 1.11. Troponin negative 3. * Current home cardiac medications include lisinopril 5 mg daily and Lipitor 40 mg at night REVIEW OF SYSTEMS: At the time of my exam: CONSTITUTIONAL: Denies fever or chills. HEENT: Denies blurred vision, vision changes, or eye pain. Denies hemoptysis CARDIOVASCULAR: Denies chest pain. Denies orthopnea. Denies PND. Denies palpitations RESPIRATORY: Denies shortness of breath. GASTROINTESTINAL: Denies abdominal pain. Denies nausea or vomiting. HEMATOLOGIC: Denies bleeding disorders. GENITOURINARY: Denies any blood in urine. SKIN: Denies pruitis. Denies rash. PHYSICAL EXAM: VITAL SIGNS: Reviewed. GENERAL: Well-developed in no acute distress. HEENT: Head is normocephalic. Pupils are equal, round. Sclerae anicteric. Mucous membranes of the mouth are moist. Neck supple. No JVD or thyromegaly LUNGS: Respirations even and unlabored. Lungs essentially clear to auscultation bilaterally. HEART: Regular rate and rhythm. S1 and S2 heard. ABDOMEN: Soft. Nondistended. Nontender. EXTREMITIES: Normal range of motion. No clubbing or cyanosis. Peripheral pulses intact. No lower extremity edema NEUROLOGIC: Awake and alert. Oriented x 3. ASSESSMENT: Chest pain, appears musculoskeletal, troponins negative 3 Hypertension Hyperlipidemia PLAN: An acute coronary event has been ruled out Resume home cardiac medications Patient may be discharged home today from a cardiac standpoint Patient is to follow up on an outpatient basis with Dr. Escobar for further workup Nurse practitioner note has been reviewed by physician. Signing provider agrees with the documented findings, assessment, and plan of care. 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 Past Anesthesia/Blood Transfusion Reactions: No Reported Reaction Past Psychological History: Anxiety, Bipolar, Depression Smoking Status: Former smoker Past Alcohol Use History: None Reported Past Drug Use History: None Reported - Past Family History Father History Unknown: Yes Family Medical History: Dementia Additional Family Medical History / Comment(s): Father is living. Mother Family Medical History: Cancer Additional Family Medical History / Comment(s): Kidney cancer with nephrectomy and skin cancer removals. Mother is living. Medications and Allergies Home Medications Medication Instructions Recorded Confirmed Type Omeprazole 40 mg PO DAILY 04/13/16 11/26/22 History Atorvastatin [Lipitor] 40 mg PO HS 03/22/19 11/26/22 History OLANZapine 20 mg PO HS 03/22/19 11/26/22 History clonazePAM 1 mg PO DAILY 03/22/19 11/26/22 History Empaglifloz/Linaglip/Metformin 2 tab PO DAILY 10/28/21 11/26/22 History [Trijardy Xr 12.5-2.5-1,000 mg] Azelastine HCl [Astelin Nasal 2 sprays EA NOSTRIL BID 11/26/22 11/26/22 History [place]] Citalopram Hydrobromide [CeleXA] 40 mg PO DAILY 11/26/22 11/26/22 History Fluticasone Nasal [place] [Flonase 2 spray EA NOSTRIL DAILY 11/26/22 11/26/22 History Nasal [place]] clonazePAM [KlonoPIN] 2 mg PO HS 11/26/22 11/26/22 History hydrOXYzine HCL [Atarax] 50 mg PO TID PRN 11/26/22 11/26/22 History lamoTRIgine [LaMICtal] 75 mg PO BID 11/26/22 11/26/22 History lisinopriL [Zestril] 5 mg PO DAILY 11/26/22 11/26/22 History Allergies Allergy/AdvReac Type Severity Reaction Status Date / Time No Known Allergies Allergy Verified 11/26/22 20:13 Physical Exam Vitals: Vital Signs Temp Pulse Resp BP Pulse Ox 11/27/22 09:18 57 L 20 112/77 99 11/27/22 07:38 56 L 18 122/74 99 11/27/22 06:00 97.8 F 52 L 16 119/83 98 11/27/22 04:00 50 L 16 121/77 98 11/27/22 03:30 52 L 16 121/77 95 11/27/22 01:49 97.8 F 60 16 108/65 99 11/26/22 23:31 98.4 F 59 L 16 110/64 97 11/26/22 16:12 98.4 F 57 L 20 106/68 96 Intake and Output 11/26/22 11/27/22 11/27/22 22:59 06:59 14:59 Other: Weight 87.997 kg Results 11/26/22 16:28 11/26/22 16:28 Cardiac Enzymes 11/26/22 11/26/22 11/26/22 Range/Units 16:28 16:28 21:15 AST 28 (17-59) U/L Troponin I <0.012 <0.012 (0.000-0.034) ng/mL 11/27/22 Range/Units 01:16 AST (17-59) U/L Troponin I <0.012 (0.000-0.034) ng/mL Coagulation 11/26/22 Range/Units 16:28 PT 10.4 (9.0-12.0) sec APTT 25.7 (22.0-30.0) sec CBC 11/26/22 Range/Units 16:28 WBC 7.0 (3.8-10.6) k/uL RBC 4.91 (4.30-5.90) m/uL Hgb 14.8 (13.0-17.5) gm/dL Hct 45.2 (39.0-53.0) % Plt Count 234 (150-450) k/uL Comprehensive Metabolic Panel 11/26/22 Range/Units 16:28 Sodium 137 (137-145) mmol/L Potassium 4.0 (3.5-5.1) mmol/L Chloride 103 (98-107) mmol/L Carbon Dioxide 22 (22-30) mmol/L BUN 26 H (9-20) mg/dL Creatinine 1.11 (0.66-1.25) mg/dL Glucose 118 H (74-99) mg/dL Calcium 9.4 (8.4-10.2) mg/dL AST 28 (17-59) U/L ALT 36 (4-49) U/L Alkaline Phosphatase 92 (38-126) U/L Total Protein 7.0 (6.3-8.2) g/dL Albumin 4.3 (3.5-5.0) g/dL Current Medications Generic Name Dose Route Start Last Admin Trade Name Freq PRN Reason Stop Dose Admin Citalopram Hydrobromide 40 mg 11/27/22 09:00 11/27/22 09:16 Citalopram Hydrobromide 20 Mg Tab PO 40 mg DAILY ABIGAIL Administration Fluticasone Propionate 2 spray 11/27/22 09:00 11/27/22 09:18 Fluticasone 50mcg/[place] Nasal 16gm EA NOSTRIL Not Given DAILY [facility] Heparin Sodium (Porcine) 5,000 unit 11/27/22 00:00 11/27/22 09:15 Heparin Sodium,Porcine/Pf 5,000 Unit/0.5 Ml Syringe SQ 5,000 unit Q8HR ABIGAIL Administration Hydroxyzine HCl 50 mg 11/27/22 09:00 Hydroxyzine Hcl 25 Mg Tab PO TID PRN Anxiety Insulin Aspart 0 unit 11/27/22 07:30 11/27/22 06:56 Insulin Aspart (Novolog) 100 Unit/Ml Vial SQ Not Given ACHS [facility] Protocol Lamotrigine 75 mg 11/27/22 09:00 11/27/22 09:16 Lamotrigine 25 Mg Tab PO 75 mg BID ABIGAIL Administration Lisinopril 5 mg 11/27/22 09:00 11/27/22 09:15 Lisinopril 5 Mg Tab PO 5 mg DAILY ABIGAIL Administration Naloxone HCl 0.2 mg 11/26/22 20:48 Naloxone 0.4 Mg/Ml 1 Ml Vial IV Q2M PRN Opioid Reversal Olanzapine 20 mg 11/27/22 21:00 Olanzapine 10 Mg Tab PO HS ABIGAIL Intake and Output 11/26/22 11/27/22 11/27/22 22:59 06:59 14:59 Other: Weight 87.997 kg 11/26/22 16:28 11/26/22 16:28
[2022-11-27 16:32] LABS: Chol/HDL Ratio 3.35 Ratio; LDL Cholesterol,Calculated 64.8 mg/dL (0.0-131.0)
[2022-11-27] MEDS ORDERED: OLANZapine 10 MG TAB PO SCH (21:00)
== END 2022-11-27 11:23 | disposition home or self-care (01) ==
LOC: EC 16:07 → 6NMEDSUR 19:19
PROVIDERS: ADMIT Internal Medicine; ATTEND Internal Medicine
DX: R07.89 Other chest pain (principal); I10 Essential (primary) hypertension; E78.5 Hyperlipidemia, unspecified; E11.9 Type 2 diabetes mellitus without complications; I45.10 Unspecified right bundle-branch block; R00.1 Bradycardia, unspecified; K21.9 Gastro-esophageal reflux disease without esophagitis; M19.072 Primary osteoarthritis, left ankle and foot; M19.071 Primary osteoarthritis, right ankle and foot; E78.1 Pure hyperglyceridemia; H54.7 Unspecified visual loss; R25.1 Tremor, unspecified; G47.00 Insomnia, unspecified; F31.9 Bipolar disorder, unspecified; F41.9 Anxiety disorder, unspecified; Z79.899 Other long term (current) drug therapy; Z79.84 Long term (current) use of oral hypoglycemic drugs; Z98.42 Cataract extraction status, left eye; Z97.0 Presence of artificial eye; Z98.890 Other specified postprocedural states; Z82.49 Family history of ischemic heart disease and other diseases of the circulatory system; Z80.51 Family history of malignant neoplasm of kidney; Z80.8 Family history of malignant neoplasm of other organs or systems; Z82.0 Family history of epilepsy and other diseases of the nervous system
CPT/HCPCS: 96372 ×2; 99285; 36415; 93005; 85379; 80061; 80053; 83735; 84484 ×2; 85025; 85610; 85730; 83036; 71046; G0378 ×2; J1644 ×2; 96374

== ENCOUNTER 2024-04-07 08:36 | Day surgery (SDC) | payer MEDICARE, OTHER ==
[2024-04-05 11:36] VITALS: BMI 24.0
[2024-04-07] MEDS: IV FLUID CONTINUATION 1,000 ML IV ONE (08:52)
[2024-04-07] MEDS: LACTATED RINGERS 1,000 ML IV SCH (09:04)
[2024-04-07 09:08] LABS: Glucose,Whole Blood 139 mg/dL (70-110)
[2024-04-07 09:09] VITALS: TEMP 97.2
[2024-04-07] MEDS ORDERED: PROPOFOL 10 MG/ML 20 ML VIAL IV ONE (10:04)
[2024-04-07] MEDS ORDERED: LIDOCAINE 1% INJ 10MG/ML (20 ML MDV) ONE (10:04)
--- NOTE | 2024-04-07 10:16 | P.PCN ---
Date of Procedure: 04/07/24 Procedure(s) Performed: BRIEF HISTORY: Patient is a 68-year-old, pleasant, white man scheduled an upper endoscopy as a part evaluation of longstanding history of GERD. Is maintained omeprazole 40 mg daily. He recently had a CT of the abdomen done that showed possible esophageal polyp in the mid esophagus. He is however asymptomatic.. PROCEDURE PERFORMED: Esophagogastroduodenoscopy. PREOPERATIVE DIAGNOSIS: Longstanding history of GERD and abnormal CAT scan showing questionable polyp in the mid esophagus. IV sedation per anesthesia. PROCEDURE: After informed consent was obtained, the patient was brought into the endoscopy unit. IV sedation was administered by Anesthesia under continuous monitoring. Initially the Olympus GIF-140 video endoscope was inserted into the mouth. Esophagus intubated without any difficulty. It was gradually advanced into the stomach and duodenum and carefully examined. The bulb and the second part of the duodenum appeared normal. The scope at this time was withdrawn to the stomach, adequately insufflated with air, and upon careful examination, mucosa of the antrum, body, cardia and the fundus appeared normal. The scope was then withdrawn into the esophagus. Small sliding-type hiatal hernia noted. The GE junction was located at 39 cm from the incisors. The esophagus appeared normal. There were no erosions or ulcerations seen and the patient tolerated the procedure well. IMPRESSION: 1. Small hiatal hernia. 2. Normal-appearing esophagus with no evidence of esophagitis, esophageal polyp or esophageal stricture. RECOMMENDATIONS: The findings of this examination were discussed with the patient as well as his family. He was advised to follow with the biopsy results. Continue with omeprazole 40 mg daily and follow antireflux measures..
[2024-04-07 10:52] VITALS: BP 100/61; PULSE 81; RESP 18
== END 2024-04-07 11:11 | disposition home or self-care (01) ==
LOC: ORWHC2ENDO 08:36
PROVIDERS: ATTEND Internal Medicine Gastroenterology
DX: K21.9 Gastro-esophageal reflux disease without esophagitis (principal); K44.9 Diaphragmatic hernia without obstruction or gangrene; I10 Essential (primary) hypertension; E78.5 Hyperlipidemia, unspecified; E11.9 Type 2 diabetes mellitus without complications; F41.9 Anxiety disorder, unspecified; F31.9 Bipolar disorder, unspecified; Z87.891 Personal history of nicotine dependence; Z79.899 Other long term (current) drug therapy; Z79.02 Long term (current) use of antithrombotics/antiplatelets
CPT/HCPCS: 43235; J2003; J2704